=== PATIENT | male | born 1980 | race Caucasian/White ===

== ENCOUNTER 2018-04-29 00:21 | Emergency (ER) | payer OTHER, SELFPAY ==
[2018-04-29 00:24] VITALS: BP 171/93; PULSE 70; RESP 18; TEMP 36; O2SAT 99
--- NOTE | 2018-04-29 01:10 | W.ED.GENAD ---
Discharge Plan Disposition Patient Disposition: HOME Condition: Stable Discharge Details Chief Complaint: Laceration Clinical Impression: Puncture wound of left foot, Cellulitis Primary Care Provider: Kev Mon ED Provider: Ellen Hirsch Home Meds and New Rx's Prescriptions: New cephalexin [Keflex] 500 mg capsule 500 mg PO QID 7 Days Qty: 28 RF: 0 Continue ibuprofen 600 MG tablet 600 mg PO TID PRN PRNQty: 30 RF: 0 buprenorphine-naloxone [Zubsolv] 1 EACH tablet, sublingual 1 tab PO DAILY RF: 0 dicyclomine 20 MG tablet 20 mg PO Q6H PRN (Reason: Abdominal Pain) Qty: 10 RF: 0 Discharge Instructions Instructions: Puncture Wound (ED), Cellulitis (ED) Additional Instructions: Take the antibiotics until finished. Keep wound clean, dry, and covered. Apply topical antibiotic ointment to area once-twice daily. Alternate Tylenol and Motrin as needed and directed for pain. You will receive a call from care management regarding a follow-up appoint with your primary care doctor for reevaluation of your wound and for referral to orthopedics if worse for possible removal. Return immediately to the emergency department with any worsening or new concerning symptoms and for x-ray of your left foot. Referrals: Josef Dong MD [ [facility] STAFF PHYSICIAN] - Discharge Data Discharge Date/Time-TO BE ENTERED AT DEPARTURE: 04/29/18 01:20 Discharge Physician: Ellen Hirsch Medical Decision Making 37-year-old male who presents with concern for possible embedded toothpick in left foot with left foot pain tonight. Tetanus up-to-date 2016. Very minimal erythema around puncture wound to left medial MTP joint. Area was anesthetized with 5 cc of lidocaine 1% without epi. A 4 x 4 millimeter cross incision was made around the area and area was explored and probed with hemostat but no obvious foreign body noted. Minimal bleeding. Area was extensively irrigated with NS. Patient tolerated procedure well. Discussed with patient recommendations for x-ray to rule out foreign body, but discussed that it may not be seen as it is wood material, and he is declining x-ray at this time. Pt expressed concern about cost of xray. Discussed with patient that if foreign body embedded deep, would not want to explore any further for risk of neurovascular injury and patient is agreeable with this plan. Also discussed the possibility that there is no foreign body embedded and patient states this may be possible. Patient would rather proceed with topical and oral antibiotics at this time and will follow up with primary care doctor. Will place patient on care management list to arrange for a follow-up appointment with primary care doctor for reevaluation in the next few days and for referral to orthopedics if needs further debridement or exploration if symptoms persist or worsen. Dose of motrin and Keflex given here and prescription for home. Instructed to return immediately to the emergency department any worsening or new concerning symptoms. HPI General Mode of arrival: ambulatory. Date/Time Provider Initiated Documentation: 04/29/18 01:08. Limitations to Documentation: no limitations. Information obtained by: patient. HPI Narrative: 37-year-old male presents with concern for embedded toothpick in left foot since this evening. Patient states he was wearing socks when he stepped on a toothpick with his right foot and then attempted to remove it from his sock and rubbed his right foot onto his left foot and the toothpick became embedded on his left medial foot near his first toe. Patient states he attempted to pull the tooth pick out but he states it broke and when he removed the sock he could not find the remainder of the toothpick and he thinks it still embedded. Patient states he did have initial pain but has been developing pain over the past few hours. Patient states he tried to take and remove it on his own but did not find anything. Believes his tetanus is up-to-date. Denies any fever. Related Data Home Medications Medication Instructions Recorded Confirmed ibuprofen 600 mg PO TID PRN PRN #30 tablet 08/07/15 04/29/18 buprenorphine-naloxone [Zubsolv] 1 tab PO DAILY 11/08/16 04/29/18 dicyclomine 20 mg PO Q6H PRN #10 tab 11/08/16 04/29/18 cephalexin [Keflex] 500 mg PO QID 7 Days #28 cap 04/29/18 Previous Rx's Medication Instructions Recorded ibuprofen 600 mg PO TID PRN PRN #30 tablet 08/07/15 dicyclomine 20 mg PO Q6H PRN #10 tab 11/08/16 cephalexin [Keflex] 500 mg PO QID 7 Days #28 cap 12/12/18 Allergies Allergy/AdvReac Type Severity Reaction Status Date / Time No Known Allergies Allergy Unverified 04/29/18 00:28 General Stated Complaint: Laceration ION: 4 Review of Systems Review of Systems All systems reviewed & are unremarkable except as noted in HPI and below PFSH Diverticulitis large intestine Diverticulosis of colon GERD (gastroesophageal reflux disease) Opiate dependence Colonoscopy - IV Sedation Medical History Diverticulitis large intestine Diverticulosis of colon GERD (gastroesophageal reflux disease) Opiate dependence Social History Smoking/Tobacco Use Status: Current every day Surgical History Colonoscopy - IV Sedation Social History Smoking/Tobacco Use Status: Current every day Exam Const General: cooperative, healthy appearing and no acute distress HENMT Head: normal to inspection Mouth: oral mucosae normal Eyes General: appearance normal, both eyes and all related structures Neck Neck: normal visual inspection Resp Effort & Inspection: normal respiratory effort and able to speak in complete sentences Cardio Rate: regular rate Skin General skin exam: no rashes or lesions noted Neuro General: alert, awake and oriented x3 Motor: muscle tone normal throughout Extrem Left lower extremity: foot (2 x 2 millimeter puncture wound with healing erosion on left medial foot at first MTP joint. No obvious embedded foreign body. No palpation of linear foreign body under skin. There is minimal surrounding erythema no edema, induration or obvious abscess.) Details: vascular exam Details: dorsalis pedis pulse present and posterior tibial pulse present Psych Appearance: grossly normal Affect: normal affect Course Vital Signs Temperature 96.8 F L 04/29/18 00:24 Pulse 70 04/29/18 00:24 Respiratory Rate 18 04/29/18 00:24 Blood Pressure 171/93 H 04/29/18 00:24 Pulse Oximetry 99 04/29/18 00:24 Temperature 96.8 F L 04/29/18 00:24 Temperature Source Skin 04/29/18 00:24 Pulse 70 04/29/18 00:24 Respiratory Rate 18 04/29/18 00:24 Respiratory Effort Non-Labored 04/29/18 00:26 Blood Pressure 171/93 H 04/29/18 00:24 Blood Pressure Position Sitting 04/29/18 00:24 Pulse Oximetry 99 04/29/18 00:24 Oxygen Delivery Method Room Air 04/29/18 00:24 Oxygen Flow Rate 0 04/29/18 00:24
[2018-04-29] MEDS: Ibuprofen 600 MG TAB PO (01:14)
[2018-04-29] MEDS: Cephalexin 500 MG CAP PO (01:14)
--- NOTE | 2018-04-29 01:19 | ED.GENADUL_ITS ---
Discharge Plan Disposition Patient Disposition: HOME Condition: Stable Discharge Details Chief Complaint: Laceration Clinical Impression: Puncture wound of left foot, Cellulitis Primary Care Provider: Kev Mon ED Provider: Ellen Hirsch Home Meds and New Rx's Prescriptions: New cephalexin [Keflex] 500 mg capsule 500 mg PO QID 7 Days Qty: 28 RF: 0 Continue ibuprofen 600 MG tablet 600 mg PO TID PRN PRNQty: 30 RF: 0 buprenorphine-naloxone [Zubsolv] 1 EACH tablet, sublingual 1 tab PO DAILY RF: 0 dicyclomine 20 MG tablet 20 mg PO Q6H PRN (Reason: Abdominal Pain) Qty: 10 RF: 0 Discharge Instructions Instructions: Puncture Wound (ED), Cellulitis (ED) Additional Instructions: Take the antibiotics until finished. Keep wound clean, dry, and covered. Apply topical antibiotic ointment to area once-twice daily. Alternate Tylenol and Motrin as needed and directed for pain. You will receive a call from care management regarding a follow-up appoint with your primary care doctor for reevaluation of your wound and for referral to orthopedics if worse for possible removal. Return immediately to the emergency department with any worsening or new concerning symptoms and for x-ray of your left foot. Referrals: Josef Dong MD [ [facility] STAFF PHYSICIAN] - Discharge Data Discharge Date/Time-TO BE ENTERED AT DEPARTURE: 04/29/18 01:20 Discharge Physician: Ellen Hirsch Medical Decision Making 37-year-old male who presents with concern for possible embedded toothpick in left foot with left foot pain tonight. Tetanus up-to-date 2016. Very minimal erythema around puncture wound to left medial MTP joint. Area was anesthetized with 5 cc of lidocaine 1% without epi. A 4 x 4 millimeter cross incision was made around the area and area was explored and probed with hemostat but no obvious foreign body noted. Minimal bleeding. Area was extensively irrigated with NS. Patient tolerated procedure well. Discussed with patient recommendations for x-ray to rule out foreign body, but discussed that it may not be seen as it is wood material, and he is declining x- ray at this time. Pt expressed concern about cost of xray. Discussed with patient that if foreign body embedded deep, would not want to explore any further for risk of neurovascular injury and patient is agreeable with this plan. Also discussed the possibility that there is no foreign body embedded and patient states this may be possible. Patient would rather proceed with topical and oral antibiotics at this time and will follow up with primary care doctor. Will place patient on care management list to arrange for a follow-up appointment with primary care doctor for reevaluation in the next few days and for referral to orthopedics if needs further debridement or exploration if symptoms persist or worsen. Dose of motrin and Keflex given here and prescription for home. Instructed to return immediately to the emergency department any worsening or new concerning symptoms. HPI General Mode of arrival: ambulatory . Date/Time Provider Initiated Documentation: 04/29/18 01:08 . Limitations to Documentation: no limitations . Information obtained by: patient . HPI Narrative: 37-year-old male presents with concern for embedded toothpick in left foot since this evening. Patient states he was wearing socks when he stepped on a toothpick with his right foot and then attempted to remove it from his sock and rubbed his right foot onto his left foot and the toothpick became embedded on his left medial foot near his first toe. Patient states he attempted to pull the tooth pick out but he states it broke and when he removed the sock he could not find the remainder of the toothpick and he thinks it still embedded. Patient states he did have initial pain but has been developing pain over the past few hours. Patient states he tried to take and remove it on his own but did not find anything. Believes his tetanus is up-to- date. Denies any fever. Related Data Home Medications Medication Instructions Recorded Confirmed ibuprofen 600 mg PO TID PRN PRN #30 tablet 08/07/15 04/29/18 buprenorphine-naloxone [Zubsolv] 1 tab PO DAILY 11/08/16 04/29/18 dicyclomine 20 mg PO Q6H PRN #10 tab 11/08/16 04/29/18 cephalexin [Keflex] 500 mg PO QID 7 Days #28 cap 04/29/18 Previous Rx's Medication Instructions Recorded ibuprofen 600 mg PO TID PRN PRN #30 tablet 08/07/15 dicyclomine 20 mg PO Q6H PRN #10 tab 11/08/16 cephalexin [Keflex] 500 mg PO QID 7 Days #28 cap 12/12/18 Allergies Allergy/AdvReac Type Severity Reaction Status Date / Time No Known Allergies Allergy Unverified 04/29/18 00:28 General Stated Complaint: Laceration ION: 4 Review of Systems Review of Systems All systems reviewed & are unremarkable except as noted in HPI and below PFSH Diverticulitis large intestine Diverticulosis of colon GERD (gastroesophageal reflux disease) Opiate dependence Colonoscopy - IV Sedation Medical History Diverticulitis large intestine Diverticulosis of colon GERD (gastroesophageal reflux disease) Opiate dependence Social History Smoking/Tobacco Use Status: Current every day Surgical History Colonoscopy - IV Sedation Social History Smoking/Tobacco Use Status: Current every day Exam Const General: cooperative, healthy appearing and no acute distress HENMT Head: normal to inspection Mouth: oral mucosae normal Eyes General: appearance normal, both eyes and all related structures Neck Neck: normal visual inspection Resp Effort & Inspection: normal respiratory effort and able to speak in complete sentences Cardio Rate: regular rate Skin General skin exam: no rashes or lesions noted Neuro General: alert, awake and oriented x3 Motor: muscle tone normal throughout Extrem Left lower extremity: foot (2 x 2 millimeter puncture wound with healing erosion on left medial foot at first MTP joint. No obvious embedded foreign body. No palpation of linear foreign body under skin. There is minimal surrounding erythema no edema, induration or obvious abscess.) Details: vascular exam Details: dorsalis pedis pulse present and posterior tibial pulse present Psych Appearance: grossly normal Affect: normal affect Course Vital Signs Temperature 96.8 F L 04/29/18 00:24 Pulse 70 04/29/18 00:24 Respiratory Rate 18 04/29/18 00:24 Blood Pressure 171/93 H 04/29/18 00:24 Pulse Oximetry 99 04/29/18 00:24 Temperature 96.8 F L 04/29/18 00:24 Temperature Source Skin 04/29/18 00:24 Pulse 70 04/29/18 00:24 Respiratory Rate 18 04/29/18 00:24 Respiratory Effort Non-Labored 04/29/18 00:26 Blood Pressure 171/93 H 04/29/18 00:24 Blood Pressure Position Sitting 04/29/18 00:24 Pulse Oximetry 99 04/29/18 00:24 Oxygen Delivery Method Room Air 04/29/18 00:24 Oxygen Flow Rate 0 04/29/18 00:24
== END 2018-04-29 01:20 | disposition home or self-care (01) ==
LOC: ER 01:23
PROVIDERS: Emergency Provider Physician Assistant; PCP Specialist/Technologist Athletic Trainer
DX: S91.142A Puncture wound with foreign body of left great toe without damage to nail, initial encounter (principal); W45.8XXA Other foreign body or object entering through skin, initial encounter; L03.032 Cellulitis of left toe
CPT/HCPCS: 10120

== ENCOUNTER 2018-08-12 18:18 | Outpatient (REF) | payer OTHER, SELFPAY ==
[2018-08-12 21:43] LABS: ALT 39 U/L (12-78); AST 18 U/L (15-37); Alkaline Phosphatase 86 U/L (46-116); BUN 24 mg/dL (7-18); Bilirubin, Total 0.3 mg/dL (0.2-1.0); CREATININE 1.04 mg/dL (0.70-1.30); Calcium 9.3 mg/dL (8.5-10.1); Chloride 104 mmol/L (98-107); Cholesterol 199 mg/dL (50-200); Glucose 94 mg/dL (70-100); HDL Cholesterol 67 mg/dL (40-60); LDL CHOLESTEROL 109 mg/dL (<100); Potassium 3.8 mmol/L (3.5-5.1); Sodium 141 mmol/L (136-145); TSH (W/Ref FT4) 2.97 uIU/mL (0.358-3.74); Total Protein 7.4 g/dL (6.4-8.2); Triglyceride 99 mg/dL (30-150)
== END 2018-08-12 18:38 ==
LOC: NCHCN 18:18
PROVIDERS: PCP Specialist/Technologist Athletic Trainer; Visit Provider Family Medicine
DX: E66.9 Obesity, unspecified (principal); F10.10 Alcohol abuse, uncomplicated; Z00.00 Encounter for general adult medical examination without abnormal findings; Z13.220 Encounter for screening for lipoid disorders
CPT/HCPCS: 80053; 80061; 83721; 84443

== ENCOUNTER 2019-10-13 14:42 | Outpatient (REF) | payer OTHER, SELFPAY ==
[2019-10-15 07:34] LABS: COVID-19 RT-PCR Result NEGATIVE (Negative)
== END 2019-10-13 15:02 ==
LOC: NCHCN 14:42
PROVIDERS: PCP Specialist/Technologist Athletic Trainer; Visit Provider Nurse Practitioner Family
DX: Z11.59 Encounter for screening for other viral diseases (principal)
CPT/HCPCS: U0003

== ENCOUNTER 2020-02-14 13:49 | Outpatient (REF) | payer OTHER, SELFPAY ==
[2020-02-14 19:39] LABS: ALT 34 U/L (16-63); AST 16 U/L (15-37); Albumin 3.8 g/dL (3.4-5.0); Alkaline Phosphatase 87 U/L (46-116); Anion Gap 6.6 mmol/L (3-11); BUN 16 mg/dL (7-18); Bilirubin, Total 0.4 mg/dL (0.2-1.0); CO2 28.4 mmol/L (21.0-32.0); CREATININE 0.96 mg/dL (0.70-1.30); Chloride 103 mmol/L (98-107); Glucose 98 mg/dL (74-106); Potassium 4.3 mmol/L (3.5-5.1); Sodium 138 mmol/L (136-145); Total Protein 6.9 g/dL (6.4-8.2)
[2020-02-14 20:00] LABS: Hemoglobin A1C 5.3 % (<5.7)
== END 2020-02-14 14:09 ==
LOC: NCHCN 13:49
PROVIDERS: PCP Specialist/Technologist Athletic Trainer; Visit Provider Family Medicine
DX: R73.03 Prediabetes (principal); F10.10 Alcohol abuse, uncomplicated
CPT/HCPCS: 80053; 83036

== ENCOUNTER 2020-04-04 16:26 | Outpatient (REF) | payer OTHER, SELFPAY ==
[2020-04-07 09:41] LABS: HIV-1/2 Ag & Ab Screen Negative (Negative)
[2020-04-10 15:32] LABS: HSV 1 DNA Result Positive (Negative)
[2020-04-10 15:33] LABS: HSV 2 DNA Result Negative (Negative)
[2020-04-19 16:21] LABS: Hepatitis B Surface Ag Negative (Negative)
[2020-04-19 17:09] LABS: Syphilis Total Ab w/Reflex Nonreactive (Nonreactive)
== END 2020-04-04 16:46 ==
LOC: NCHCN 16:26
PROVIDERS: PCP Specialist/Technologist Athletic Trainer; Visit Provider Family Medicine
DX: Z11.4 Encounter for screening for human immunodeficiency virus [HIV] (principal); L98.9 Disorder of the skin and subcutaneous tissue, unspecified; Z00.00 Encounter for general adult medical examination without abnormal findings
CPT/HCPCS: 87340; 87389; 87529; 86695; 86696; 86780

== ENCOUNTER 2020-05-09 00:30 | Emergency (ER) | payer OTHER, SELFPAY ==
[2020-05-09 00:39] VITALS: BP 139/100; PULSE 77; RESP 16; TEMP 36.5; O2SAT 98
--- NOTE | 2020-05-09 00:45 | DI.CT_ITS ---
EXAM: CT NECK W CLINICAL HISTORY: suspect r/ peritonsillar abscess, recent tooth ext. TECHNIQUE: Imaging Protocol: Axial computed tomography images with coronal and sagittal reformatted images were created and reviewed. CONTRAST MATERIAL: Intravenous: Omnipaque 350 Contrast volume:100 mL COMPARISON: No exams were available for comparison FINDINGS: Orbits and orbital soft tissues: Within normal limits. Visualized paranasal sinuses: Within normal limits. Nasopharynx: Within normal limits. Oropharynx: Within normal limits. Hypopharynx: There is a fluid collection seen in the right tonsillar region measuring 3.0 x 2.9 x 3. 1 cm. There is a mass effect on the adjacent airway. There is enlargement of the palatine tonsil on the right. Larynx: Within normal limits. Retropharyngeal space: There is minimal fluid seen in the retropharyngeal space. Parotids/submandibular: Within normal limits. Thyroid gland: Within normal limits. Lymphadenopathy: There are mildly enlarged lymph nodes in the right neck which are likely reactive. Trachea: Within normal limits. Lung apices: Within normal limits. Bones: There is a socket in the right mandible posteriorly likely reflecting the patient's recent too th extraction. Carotids/Jugular: Within normal limits. Soft tissues: Within normal limits. IMPRESSION: 1. There is an empty socket in the right mandible posteriorly likely reflecting the patient's recent tooth extraction. 2. 3.1 cm fluid collection in the right tonsillar region consistent with an abscess. There is mild m ass effect on the airway and small amount of fluid in the retropharyngeal space. RADIATION DOSE DELIVERED: 613.24mGy.cm Total DLP 613.24mGy.cm Total DLP DATA REPOSITORY: All CT scans at this facility are submitted to the National Radiology Data Registry (NRDR) Dose Index Registry (DIR) with the [employer] ([employer]). RADIATION OPTIMIZATION: All CT scans at this facility use at least one of these dose optimization te chniques: automated exposure control; mA and/or kV adjustment per patient size (includes targeted exa ms where dose is matched to clinical indication); or iterative reconstruction.
--- NOTE | 2020-05-09 00:58 | W.ED.GENAD ---
Discharge Plan Disposition Patient Disposition: HOME Condition: Good Discharge Details Clinical Impression: Peritonsillar abscess Primary Care Provider: Kev Mon ED Provider: Kee Georges Home Meds and New Rx's Prescriptions: New amoxicillin-pot clavulanate [Augmentin] 875-125 mg tablet 1 tab PO Q12H 10 Days Qty: 20 RF: 0 Continued ibuprofen 600 MG tablet 600 mg PO TID PRN PRNQty: 30 RF: 0 dicyclomine 20 MG tablet 20 mg PO Q6H PRN (Reason: Abdominal Pain) Qty: 10 RF: 0 Discontinued penicillin V potassium 500 mg tablet 1,000 mg PO Q6H RF: 0 Discharge Instructions Instructions: Peritonsillar Abscess (ED) Additional Instructions: You had a peritonsillar abscess, likely a byproduct of the previous infection with your tooth that was removed a few days ago. Please stop taking the penicillin and start taking the Augmentin now. We gave you 2 pills to go home with, the first can be taken in the morning, the next 12 hours later if your prescription has not yet filled. Please then take the antibiotic that was prescribed to you for the entire 10-day period. Please take 800 mg of ibuprofen every 6 hours, and 500 mg of Tylenol every 6 hours. You can take the [place] pain pill as needed for breakthrough pain. Please stick with a soft and liquid diet for the next few days. We have placed a referral with the ENT doctors, please follow-up closely with them in the neck 2 to 3 days. If you not hear back from them in the next 24 to 48 hours please contact them. If you notice any worsening of your symptoms, or any new symptoms such as difficulty swallowing, drinking, controlling her secretions, worsening pain in your throat, vomiting, diarrhea, fever, chills, shortness of breath, chest pain, numbness, weakness, or fainting , please return immediately to the emergency department for reevaluation. Please follow up with your primary care provider as soon as possible for reassessment and reevaluation. As always, it was a pleasure participating in your medical care today. Referrals: Nishant Saunders DO [OSTEOPATHIC DOCTOR] - Tripp Negron MD [ [facility] STAFF PHYSICIAN] - Medical Decision Making 39-year-old male who presents today for evaluation of right-sided throat/tonsil pain. The patient is right lower wisdom tooth removed last week, he subsequently developed a dry socket, was seen by dentist on Friday and started on penicillin VK 1 g every 6 hours, since then he has had continued pain and swelling, describes the pain as achy in the right posterior aspect of his throat, as well as in the right tooth. He is able to maintain his secretions, but he does have slight difficulty getting any food down, because of this he is only been taking soup. He has been taking ibuprofen every 6 hours but this has not relieved the symptoms. He denies any other complaints at this time. He denies any fevers but does admit to occasional chills, he denies any chest pains or shortness of breath. Physical exam demonstrates swelling in the right posterior oropharynx in the peritonsillar space, it does press up against the uvula but it does not deviate the uvula to the left. No signs of airway compromise at all. He is tolerating his secretions well. Concern is for peritonsillar abscess. We will get a CT scan to evaluate for need for drainage, Decadron, Tylenol and Toradol, and Unasyn. 4:[address] scan does show evidence of large 3 cm peritonsillar abscess, laboratory work-up unremarkable. Patient benefits of in department procedure discussed. Patient agreed with bedside I&D of abscess. Respiratory therapy was called, she was at bedside for entire procedure. Timeout was performed, after initial nebulized lidocaine followed by local lidocaine with epi a small incision was placed using an 11 blade the superior aspect of the abscess, notable amount of chunky purulent material was exuded. The area was milked, notable decrease in size after this, however there was still fluctuance present in the lower aspect. A second small incision was made 1.5 cm inferior with an 11 blade, then an 18-gauge needle was used to aspirate 7 mL of foul-smelling purulent fluid. Patient tolerated this remarkably well. Post procedurally all bleeding stopped very promptly, patient had near complete resolution of the previous swelling that was there, there is currently now no deviation of the uvula, touching of the uvula of the peritonsillar space, or signs of significant swelling at all when compared bilaterally. Patient has notable subjective improvement of his symptoms, he can open his mouth well, he states he no longer feels like there is any difficulty swallowing whatsoever, and feels near complete resolution of his symptoms. Patient was observed for an additional 30 minutes to an hour for any change in symptoms. Patient continued to do well, showed no signs of airway compromise whatsoever in any way. Physical exam on repeat assessment also shows no evidence of significant swelling in the posterior oropharynx. At this time with near complete resolution of his symptoms patient feels well and feels comfortable going home. Patient will be discharged with Augmentin, recommend close follow-up with the ENT in the next 24 to 48 hours if indicated by them. I had a long discussion with the patient regarding red flags which to immediately return and he understands. I have extensively reviewed the treatment plan and discharge instructions with the patient. I have addressed all patient concerns at this time. The patient was made aware of what symptoms to monitor for that would warrant a return to the emergency department. Discussed the plan with the patient, they demonstrate verbal understanding and agreement with our assessment and plan at this time. FINDINGS: Right mandibular 3rd mandibular extraction socket noted Ovoid hypodensity in the right tonsillar space measuring up to 3x 2.1x 1.8 cm. There is mild mass effect on the or pharyngeal airway. Enlargement of the right palatine tonsil noted. Minimal phlegmon/fluid in the retropharyngeal space. The epiglottis is normal. The trachea is patent. The lung apices are grossly clear. Prominent right lateral retropharyngeal and jugular chain lymph nodes, presumed reactive. The nasopharynx is unremarkable. The visualized intracranial and intraorbital contents are unremarkable. The salivary glands and thyroid gland are unremarkable IMPRESSION: Right tonsillar abscess as described measuring up to 3 cm. Minimal fluid/phlegmon in the retropharyngeal space. Developing retropharyngeal collection not excluded. Consider ENT consultation Thank you for allowing us to participate in the care of your patient. Dictated and Authenticated by: Demarcus Greene MD 05/09/2020 1:31 AM Eastern Time ([place] & [place]) HPI General Date/Time Provider Initiated Documentation: 05/09/20 00:44. HPI Narrative: 39-year-old male who presents today for evaluation of right-sided throat/tonsil pain. The patient is right lower wisdom tooth removed last week, he subsequently developed a dry socket, was seen by dentist on Friday and started on penicillin VK 1 g every 6 hours, since then he has had continued pain and swelling, describes the pain as achy in the right posterior aspect of his throat, as well as in the right tooth. He is able to maintain his secretions, but he does have slight difficulty getting any food down, because of this he is only been taking soup. He has been taking ibuprofen every 6 hours but this has not relieved the symptoms. He denies any other complaints at this time. He denies any fevers but does admit to occasional chills, he denies any chest pains or shortness of breath. Related Data Home Medications Medication Instructions Recorded Confirmed ibuprofen 600 mg PO TID PRN PRN #30 tablet 08/07/15 05/09/20 dicyclomine 20 mg PO Q6H PRN #10 tab 11/08/16 05/09/20 amoxicillin-pot clavulanate 1 tab PO Q12H 10 Days #20 tab 05/09/20 [Augmentin] Previous Rx's Medication Instructions Recorded ibuprofen 600 mg PO TID PRN PRN #30 tablet 08/07/15 dicyclomine 20 mg PO Q6H PRN #10 tab 11/08/16 amoxicillin-pot clavulanate 1 tab PO Q12H 10 Days #20 tab 05/09/20 [Augmentin] Allergies Allergy/AdvReac Type Severity Reaction Status Date / Time No Known Allergies Allergy Unverified 04/29/18 00:28 General Stated Complaint: DentalOral ION: 4 Review of Systems All systems reviewed & are unremarkable except as noted in HPI and below PFSH Medical History (Updated 05/09/20 @ 03:37 by Kee Georges DO) Diverticulitis large intestine w/ microperforation 2013 Diverticulosis of colon 2013 GERD (gastroesophageal reflux disease) Opiate dependence on suboxone Surgical History Colonoscopy - IV Sedation 2013-Sue Garcia Social History Smoking/Tobacco Use Status: Current every day Smoking risk assessment performed?: Yes Drug use: Current Sobriety Do you feel safe in your relationship?: Yes Exam Narrative Exam Narrative: 1.Const: Well-nourished, Well-developed, appearing stated age 2.Eyes: PERRL, no conjunctival injection, and symmetrical lids. 3.ENT: Atraumatic external nose and ears. Posterior oropharynx demonstrates swelling in the right posterior peritonsillar space, it does push up against the uvula but at this time there is not any significant uvular deviation to the left. Mild tenderness on palpation, but I cannot palpate significant fluctuance on exam. No signs of acute airway compromise well, patient tolerating his secretions notably well. 4.CVS: +S1/S2, No murmurs or gallops. Peripheral pulses 2+ and equal in all extremities. Brisk capillary refill in all extremities. 5.RESP: Unlabored respiratory effort. Clear to auscultation bilaterally. No wheezes rales or rhonchi 6.GI: Soft, Nontender/Nondistended, No hepatosplenomegaly. No guarding or rebound. 7.MSK: Normocephalic/Atraumatic, Extremities w/o deformity or ttp No cyanosis or clubbing, Normal movement of all extremities 8.Skin: Warm, Dry. No rashes or lesions. 9.Neuro: security screener II-XII grossly intact. Sensation grossly intact, no focal neurologic deficits. 10.Psych: (AAO) x3. Appropriate mood and affect Course Vital Signs Vital signs: Vital Signs Temperature 36.5 C 05/09/20 00:39 Pulse 77 12 00:39 Respiratory Rate 16 05/09/20 00:39 Blood Pressure 139/100 H 05/09/20 00:39 Pulse Oximetry 98 05/09/20 00:39 Temperature 36.5 C 05/09/20 00:39 Temperature Source Skin 05/09/20 00:39 Pulse 77 05/09/20 00:39 Respiratory Rate 16 05/09/20 00:39 Respiratory Effort 05/09/20 00:41 Blood Pressure 139/100 H 05/09/20 00:39 Blood Pressure Position Sitting 05/09/20 00:39 Pulse Oximetry 98 12 00:39 Oxygen Delivery Method Room Air 05/09/20 00:39 Oxygen Flow Rate 0 05/09/20 00:39 Pain Level 7 05/09/20 00:41 Procedures Abscess I/D Site: Other (Peritonsillar space) Side (if applicable): Right Local Anesthetic: Lidocaine 1%, With Epi and Other Anesthetic (Nebulized lidocaine) Amount of anesthesia used (mL): 3 Technique: Needle Aspiration and Incised with #11 Blade Amount of fluid expressed (mL): 7 Irrigation: No Packing used?: None Complications: Other
[2020-05-09 01:02] LABS: Abs Immature Grans 0.04 10^3/uL (0.0-0.06); Absolute Basophil Count 0.02 10^3/uL (0.0-0.2); Absolute Eosinophil Count 0.28 10^3/uL (0.0-0.7); Absolute Lymphocyte Count 1.92 10^3/uL (1.2-3.4); Absolute Monocyte Count 0.77 10^3/uL (0.1-0.8); Absolute Neutrophil Count 7.08 10^3/uL (1.2-6.7); Basophils % 0.2; Eosinophils % 2.8; HCT 41.6 % (40.0-50.0); HGB 13.7 g/dL (13.5-17.5); Immature Grans % 0.4; MCH 28.6 pg (27.0-33.0); MCHC 32.9 % (32.0-36.0); MCV 86.8 fL (80-95); MPV 8.7 fL (8.0-11.0); Monocytes % 7.6; Nucleated RBC 0 %; Platelet Count 277 10^3/uL (130-400); RBC 4.79 10^6/uL (4.36-5.78); RDW 11.8 % (11.8-14.1); RDW-SD 37.8 fL; WBC 10.11 10^3/uL (4.4-10.8)
[2020-05-09] MEDS: Dexamethasone 10 MG/ML VIAL IVP (01:04)
[2020-05-09] MEDS: Ketorolac 30 MG/ML VIAL IVP (01:04)
[2020-05-09 01:12] LABS: Anion Gap 12.9 mmol/L (3-11); BUN 11 mg/dL (7-18); CO2 25.1 mmol/L (21.0-32.0); CREATININE 0.93 mg/dL (0.70-1.30); Chloride 105 mmol/L (98-107); Glucose 105 mg/dL (74-106); Potassium 3.4 mmol/L (3.5-5.1); Sodium 143 mmol/L (136-145)
[2020-05-09] MEDS: Omnipaque 350 MG/ML 100 ML BTL IJ (01:19)
[2020-05-09] MEDS: Normal Saline - Diluent 50 ML VIAL IV (01:19)
[2020-05-09] MEDS: Normal Saline Flush 10 ML SYR IVP (01:20)
[2020-05-09] MEDS: ACETAMINOPHEN 1,000 MG/100 ML BTL 400 MG IVPB (01:27)
--- NOTE | 2020-05-09 01:31 | DI.VRAD_ITS ---
Addendum created by Demarcus Greene MD on 05/09/2020 3:29:37 AM EST: The findings were verbally communicated via telephone conference with ALBERTO CHEW at 3:29 AM EST on 05/09/2020. The findings were acknowledged and understood. Initial report created on 05/09/2020 1:31:46 AM EST: PROCEDURE INFORMATION: Exam: CT Neck With Contrast Exam date and time: 05/09/2020 12:49 AM Age: 39 years old Clinical indication: Painful swallowing; Prior surgery; Surgery date: 3-7 days post-operative; Surgery type: Tooth extraction; Patient HX: Suspect r/ peritonsillar abscess, recent tooth ext TECHNIQUE: Imaging protocol: Computed tomography images of the neck with intravenous contrast. Radiation optimization: All CT scans at this facility use at least one of these dose optimization techniques: automated exposure control; mA and/or kV adjustment per patient size (includes targeted exams where dose is matched to clinical indication); or iterative reconstruction. Contrast material: OMNIPAQUE 350; Contrast volume: 100 ml; Contrast route: INTRA-ARTICULAR (ARTHROGRAM); COMPARISON: No relevant prior studies available. FINDINGS: Right mandibular 3rd mandibular extraction socket noted Ovoid hypodensity in the right tonsillar space measuring up to 3x 2.1x 1.8 cm. There is mild mass effect on the or pharyngeal airway. Enlargement of the right palatine tonsil noted. Minimal phlegmon/fluid in the retropharyngeal space. The epiglottis is normal. The trachea is patent. The lung apices are grossly clear. Prominent right lateral retropharyngeal and jugular chain lymph nodes, presumed reactive. The nasopharynx is unremarkable. The visualized intracranial and intraorbital contents are unremarkable. The salivary glands and thyroid gland are unremarkable IMPRESSION: Right tonsillar abscess as described measuring up to 3 cm. Minimal fluid/phlegmon in the retropharyngeal space. Developing retropharyngeal collection not excluded. Consider ENT consultation Dictated and Authenticated by: Demarcus Greene MD. Ordering:NAI Sweet MD
[2020-05-09] MEDS: AMPICILLIN/SULBACTAM 3 GM in Normal Saline 100 ML IVPB (01:45)
[2020-05-09] MEDS: Amox. 875/Clav. 125, 2 TABS/BTL 1 TAB PO (03:54)
[2020-05-09] MEDS: HYDROcodone 5/Acetaminophen 325 TAB PO (03:57)
[2020-05-09 03:59] VITALS: BP 141/79; PULSE 59; RESP 16; O2SAT 98
--- NOTE | 2020-05-09 05:10 | NUR.NOTE ---
ENT referral faxed to [facility] office 05/09/2020 @[id number] patient to be seen 24-48 hours after ER visit for follow on peritonsilar abscess - libl Nursing Note:
== END 2020-05-09 04:01 | disposition home or self-care (01) ==
PROVIDERS: Emergency Provider Student in an Organized Health Care Education/Training Program; PCP Specialist/Technologist Athletic Trainer
DX: J36 Peritonsillar abscess (principal); F17.210 Nicotine dependence, cigarettes, uncomplicated
CPT/HCPCS: 42700; 70491; 80048; 96365; 96367; 96375; 99285; 85025; J0131; J0295; J1100; J1885; J3490

== ENCOUNTER 2020-07-14 12:22 | Outpatient (REF) | payer OTHER, SELFPAY ==
[2020-07-16 16:34] LABS: COVID-19 RT-PCR UVMMC Result Negative (Negative)
== END 2020-07-14 12:23 | disposition home or self-care (01) ==
LOC: NCHCN 12:22
PROVIDERS: PCP Specialist/Technologist Athletic Trainer; Visit Provider Physician Assistant
DX: Z20.822 Contact with and (suspected) exposure to COVID-19 (principal); J06.9 Acute upper respiratory infection, unspecified
CPT/HCPCS: U0003

== ENCOUNTER 2021-05-10 19:09 | Outpatient (REF) | payer OTHER, SELFPAY ==
[2021-05-12 12:39] LABS: COVID-19 RT-PCR UVMMC Result Negative (Negative)
== END 2021-05-10 19:10 | disposition home or self-care (01) ==
LOC: LBN 19:09
PROVIDERS: PCP Specialist/Technologist Athletic Trainer; Visit Provider Physician Assistant Medical
DX: Z20.822 Contact with and (suspected) exposure to COVID-19 (principal)
CPT/HCPCS: U0003

== ENCOUNTER 2021-05-22 09:51 | Outpatient (CLI) | payer OTHER, SELFPAY ==
[2021-05-22 10:15] LABS: Abs Immature Grans 0.05 10^3/uL (0.0-0.06); Absolute Basophil Count 0.02 10^3/uL (0.0-0.2); Absolute Eosinophil Count 0.22 10^3/uL (0.0-0.7); Absolute Lymphocyte Count 1.84 10^3/uL (1.2-3.4); Absolute Monocyte Count 0.52 10^3/uL (0.1-0.8); Absolute Neutrophil Count 3.26 10^3/uL (1.2-6.7); Basophils % 0.3; Eosinophils % 3.7; HCT 45.8 % (40.0-50.0); HGB 14.8 g/dL (13.5-17.5); Immature Grans % 0.8; Lymphocytes % 31.1; MCH 28.2 pg (27.0-33.0); MCHC 32.3 % (32.0-36.0); MCV 87.2 fL (80-95); MPV 8.3 fL (8.0-11.0); Monocytes % 8.8; Neutrophils % 55.3; Nucleated RBC 0 %; Platelet Count 262 10^3/uL (130-400); RBC 5.25 10^6/uL (4.36-5.78); RDW 11.9 % (11.8-14.1); RDW-SD 38.3 fL; WBC 5.91 10^3/uL (4.4-10.8)
[2021-05-22 10:42] LABS: C-Reactive Protein 0.22 mg/dL (0.0-0.3)
[2021-05-22 10:43] LABS: Troponin I < 50 ng/L (<or=60)
== END 2021-05-22 09:52 | disposition home or self-care (01) ==
LOC: LBO 09:52
PROVIDERS: PCP Specialist/Technologist Athletic Trainer; Visit Provider Family Medicine
DX: R07.89 Other chest pain (principal)
CPT/HCPCS: 36415; 84484; 85025; 86140

== ENCOUNTER 2022-04-15 18:30 | Outpatient (REF) | payer OTHER, SELFPAY ==
[2022-04-15 19:26] LABS: Abs Immature Grans 0.05 10^3/uL (0.0-0.06); Absolute Basophil Count 0.03 10^3/uL (0.0-0.2); Absolute Eosinophil Count 0.32 10^3/uL (0.0-0.7); Absolute Lymphocyte Count 2.06 10^3/uL (1.2-3.4); Absolute Monocyte Count 0.67 10^3/uL (0.1-0.8); Absolute Neutrophil Count 6.48 10^3/uL (1.2-6.7); Basophils % 0.3; Eosinophils % 3.3; HCT 45.2 % (40.0-50.0); HGB 14.7 g/dL (13.5-17.5); Immature Grans % 0.5; Lymphocytes % 21.4; MCH 27.9 pg (27.0-33.0); MCHC 32.5 % (32.0-36.0); MCV 86 fL (80-95); MPV 9.2 fL (8.0-11.0); Neutrophils % 67.5; Platelet Count 284 10^3/uL (130-400); RBC 5.26 10^6/uL (4.36-5.78); RDW 11.9 % (11.8-14.1); RDW-SD 37.7 fL; WBC 9.61 10^3/uL (4.4-10.8)
[2022-04-15 19:51] LABS: ALT 49 U/L (16-63); AST 18 U/L (15-37); Albumin 3.9 g/dL (3.4-5.0); Alkaline Phosphatase 109 U/L (46-116); Anion Gap 9.8 mmol/L (3-11); BUN 19 mg/dL (7-18); Bilirubin, Total 0.5 mg/dL (0.2-1.0); C-Reactive Protein 12.37 mg/dL (0.0-0.3); CO2 26.2 mmol/L (21.0-32.0); CREATININE 0.9 mg/dL (0.70-1.30); Calcium 9.4 mg/dL (8.5-10.1); Chloride 103 mmol/L (98-107); Estimated GFR 111.42 (mL/min/1.73m2); Glucose 115 mg/dL (74-106); Sodium 139 mmol/L (136-145); Total Protein 7.7 g/dL (6.4-8.2)
== END 2022-04-15 18:31 | disposition home or self-care (01) ==
LOC: NCHCN 18:30
PROVIDERS: PCP Specialist/Technologist Athletic Trainer; Visit Provider Family Medicine
DX: R10.9 Unspecified abdominal pain (principal)
CPT/HCPCS: 80053; 85025; 86140

== ENCOUNTER → 2023-06-12 10:43 | Outpatient (CLI) | payer OTHER, SELFPAY ==
--- NOTE | 2023-06-12 | DI.RAD_ITS ---
Exam(s) XR FOOT LT COMPLETE EXAM: XR FOOT LT COMPLETE CLINICAL HISTORY: PAIN LEFT FOOT M79.672. TECHNIQUE: 2D digital imaging was performed of the left foot. Three images were obtained. AP, obli que and lateral views were obtained. COMPARISON: No exams were available for comparison FINDINGS: BONES: No acute fracture is present. No bony destructive lesion is seen. JOINTS: No dislocation present. The joint spaces are well maintained. SOFT TISSUE: Normal. IMPRESSION: Unremarkable radiographs of the left foot. DATA REPOSITORY: RADIATION DOSE DELIVERED:
== END ==
PROVIDERS: PCP Specialist/Technologist Athletic Trainer; Visit Provider Physician Assistant Medical
DX: M79.672 Pain in left foot (principal)
CPT/HCPCS: 73630

== ENCOUNTER 2023-06-14 03:47 | Emergency (ER) | payer OTHER, SELFPAY ==
[2023-06-14 03:51] VITALS: BP 140/86; PULSE 90; RESP 16; TEMP 36.6; O2SAT 99
--- NOTE | 2023-06-14 04:03 | ED.GENADUL_ITS ---
HPI General Mode of arrival: ambulatory . Date/Time Provider Initiated Documentation: 06/14/23 04:03 . Limitations to Documentation: no limitations . Information obtained by: patient . HPI Narrative: Time seen was 4 AM in bed 8. The patient is a healthy 42-year-old male who presents with a left foot pain which began about a week ago. Several days preceding the onset of the pain he was logging in the [place] and felt something poke into his foot through his sock and his boot but examined the boot and did not notice any evidence of a foreign body or damage to the sole of the boot. Several days later he developed pain in the sole of his left foot. Just proximal to his great toe and was seen in urgent care. He did not volunteer the information of a possible foreign body at that time. An x-ray was obtained which I have reviewed and which was read as unremarkable by the radiologist. The patient was diagnosed with a tentative diagnosis of gout and was placed on prednisone which she is taken for 2 days. He presents today with increasing pain which is constant and 6 out of 10 at rest 8 out of 10 with ambulation. The pain does not radiate. It is associated with a swollen area on the sole of the left foot with a whitish discoloration beneath the skin. He has been taking ibuprofen 800 mg and Tylenol. His last dose was at midnight. He denies any numbness tingling or drainage. He denies any fever or chills or red streaking. He does have a prior history of the toothpick embedded in the great toe of his left toe which was treated with antibiotics. He tells me subsequently several days after being seen he was able to express the toothpick and pus and his symptoms resolved. He has no history of diabetes or immune compromise. Related Data Home Medications Medication Instructions Recorded Confirmed ibuprofen 600 mg tablet 600 mg PO TID PRN PRN ##30 08/07/15 06/14/23 escitalopram oxalate 10 mg tablet 10 mg PO DAILY 06/14/23 06/14/23 prednisone 20 mg tablet 20 mg PO DAILY 06/14/23 06/14/23 sulfamethoxazole 800 1 tab PO Q12H #20 tabs 06/14/23 mg-trimethoprim 160 mg tablet (Bactrim DS) Previous Rx's Medication Instructions Recorded ibuprofen 600 mg tablet 600 mg PO TID PRN PRN ##30 08/07/15 sulfamethoxazole 800 1 tab PO Q12H #20 tabs 06/14/23 mg-trimethoprim 160 mg tablet (Bactrim DS) Allergies Allergy/AdvReac Type Severity Reaction Status Date / Time No Known Allergies Allergy Unverified 06/14/23 03:58 General Stated Complaint: RashLesion ION: 4 Review of Systems Narrative: see hpi Allergic/Immunologic Comments: He cannot recall the date of his last tetanus shot Exam Narrative Exam Narrative: The patient is well-developed well-nourished male who is alert and oriented in no acute distress. His vital signs are within normal limits. His GCS is 15. He is afebrile. HEENT: Normocephalic atraumatic pupils are equal round react light and accommodation. Extraocular muscles are intact. Nasopharynx is clear. His left foot reveals a tender fluctuant area which is approximately 2.5 cm in diameter on the sole of the left foot just proximal to the great toe which is tender and it appears that there is purulent material beneath it. There is no lymphangitis. He is able to flex and extend the great toe without discomfort. There is no sensory deficit. There is no lymphangitis or inguinal adenopathy. Cap refills less than 2 seconds. Neuro: He is moving all of his extremities normally neurologic exam is nonfocal. Cranial nerves II through XII are grossly intact. Course The patient tolerated the I&D well. I have advised him about the culture and the results being available in 48 hours. I have arranged for him to have podiatry follow-up. I have advised him if he is not seen within 48 hours to remove the dressing and wash the wound with dilute hydrogen peroxide and warm water. The patient was advised to at foods that contain probiotics such as kombucha or [place] yogurt while on antibiotics. Alternatively they were advised to ask their pharmacist for an [id number] probiotic to take while taking antibiotics. The patient and/or family voiced understanding and agreement with the discharge plan. All their questions and concerns were addressed prior to discharge. Due to voice recognition software, sound alike and misspelled words may be contained in the documentation. Vital Signs Vital signs: Vital Signs Temperature 36.6 C 06/14/23 03:51 Pulse 90 06/14/23 03:51 Respiratory Rate 16 06/14/23 03:51 Blood Pressure 140/86 06/14/23 03:51 Pulse Oximetry 99 06/14/23 03:51 Temperature 36.6 C 06/14/23 03:51 Temperature Source Skin 06/14/23 03:51 Pulse 90 06/14/23 03:51 Respiratory Rate 16 06/14/23 03:51 Respiratory Effort Normal, Non-Labored 06/14/23 03:56 Blood Pressure 140/86 06/14/23 03:51 Blood Pressure Position Supine 06/14/23 03:51 Pulse Oximetry 99 06/14/23 03:51 Oxygen Delivery Method Room Air 06/14/23 03:51 Oxygen Flow Rate 0 06/14/23 03:51 Pain Level 8 06/14/23 03:51 Procedures Abscess I/D Site: Foot Side (if applicable): Left Sedation/analgesia: None Local Anesthetic: Lidocaine 1% Amount of anesthesia used (mL): 4 Technique: Incised with #11 Blade Amount of fluid expressed (mL): 5 Irrigation: Yes Packing used?: None Complications: Other (None. Culture was obtained) Medical Decision Making This is a 42-year-old male without any history of immune compromise who presents with left foot pain and probable puncture wound prior to the onset of the pain. He had been seen at urgent care but did not give the history of the possible puncture wound and an x-ray was obtained which was read as negative by radiologist. He was placed on prednisone with a tentative diagnosis of gout. His exam is consistent with a soft tissue infection with what appears to be purulent material subcutaneously. There is no subcutaneous emphysema, lymphangitis and he has not had any fevers or chills. My plan is to review his plain films and then to I&D the abscess and take a culture. We will also update his tetanus and likely place him on trimethoprim/sulfamethoxazole. Differential Diagnosis Differential Diagnosis: Retained foreign body, abscess left foot pain, MRSA, Medical Records Medical records reviewed: Yes I reviewed the patient's medical records. Quality:SDOH Health Related Social Needs: No Data to Display PFSH All Active Problems Abscess of left foot (Acute) Incisional abscess (Acute) Cholecystitis with cholelithiasis (Acute) Diverticulitis of colon (Acute 04/03/14) LLQ abdominal pain (Acute 04/03/14) Medical History Diverticulitis large intestine w/ microperforation 2013 GERD (gastroesophageal reflux disease) Diverticulosis of colon 2013 Opiate dependence on suboxone Surgical History Colonoscopy - IV Sedation 2014-Sue Garcia Social History Smoking/Tobacco Use Status: Current every day Tobacco Type: cigarettes Years smoked: 25 Smoking risk assessment performed?: Yes Alcohol Intake: never Drug use: Current Sobriety Substance use type: former substance user Details: previously on bup, no longer takes. Do you feel safe in your relationship?: Yes Discharge Plan Disposition Patient Disposition: Home Discharge Details Clinical Impression: Incisional abscess, Abscess of left foot Primary Care Provider: Kev Mon ED Provider: Kimberli Stoddard Home Meds and New Rx's Prescriptions: New sulfamethoxazole-trimethoprim [Bactrim DS] 800-160 mg tablet 1 tab PO Q12H Qty: 20 0RF No Action ibuprofen 600 MG tablet 600 mg PO TID PRN PRNQty: 30 0RF Rx Instructions: take with food escitalopram oxalate 10 mg tablet 10 mg PO DAILY Patient Comments: TAKE ONE TABLET BY MOUTH EVERY DAY prednisone 20 mg tablet 20 mg PO DAILY Patient Comments: TAKE THREE TABLETS BY MOUTH EVERY MORNING WITH FOOD FOR 3 DAYS, THEN TAKE TWO TABLETS BY MOUTH EVERY MORNING WITH FOOD FOR 3 DAYS, THEN TAKE Discharge Instructions Instructions: Probiotic (By mouth), Abscess (ED), Abscess Incision and Drainage (DC) Additional Instructions: 1. Alternate 1000mg of acetaminophen (Tylenol) every 3 hours with 400-600mg of ibuprofen (Motrin/Advil) as needed for pain or fever. Do not take more than 4000mg in 24 hours. Do not take acetaminophen if you have a history of liver disease. Do not take ibuprofen if you have a history of gastrointestinal bleeding or a history of kidney disease. 2. Stop prednisone and start Bactrim DS (trimethoprim/sulfamethoxazole) 1 tablet every 12 hours for 10 days. While on antibiotics, we recommend you take probiotics. Probiotics help to replace the good bacteria that are killed when taking antibiotics and may decrease the gastrointestinal side effects, such as diarrhea, that sometimes occur while on antibiotics. Probiotics can be found in some foods such as kombucha and [place] yogurt. Alternatively, you may ask your pharmacist to recommend an txea-[id number]-[id number] probiotic to take along with your prescription for antibiotics. 3. A culture was taken and will be resulted in 48 hours. 4. After 48 hours wash the wound with dilute hydrogen peroxide and warm tap water twice a day. 5. You should receive a phone call on Friday the from the supervisor fabrication department with a follow-up appointment and recheck. Return to the emergency department if you develop any new or worrisome symptoms such as increasing pain, fever, chills, red streaking, swollen lymph nodes or any concerns. Discharge Data Discharge Physician: Kimberli Stoddard
--- NOTE | 2023-06-14 05:22 | NUR.NOTE ---
Pt placed on care management referral list for Podiatry for wound infection to be seen on FridayJun 16,. Per ER Dr. Stoddard.
[2023-06-14] MEDS: Sulfameth/Trimeth DS TAB 1 TAB PO (05:26)
[2023-06-14] MEDS: Ketorolac 15 MG/ML VIAL IM (05:30)
--- NOTE | 2023-06-16 07:19 | NUR.NOTE ---
Accessed Pt chart to obtain diagnosis for the [facility] paperwork.
== END 2023-06-14 05:38 | disposition home or self-care (01) ==
PROVIDERS: Emergency Provider Emergency Medicine Emergency Medical Services; PCP Specialist/Technologist Athletic Trainer
DX: M79.672 Pain in left foot (principal); L02.612 Cutaneous abscess of left foot
CPT/HCPCS: 10060; 87077; 90471; 90715; 96372; 99284; 87070; 87186; 87205; 99283; J1885

== ENCOUNTER 2023-06-19 13:11 | Outpatient (CLI) | payer OTHER, SELFPAY | END 2023-06-19 13:12 | disposition home or self-care (01) | LOC: ORDER INT 13:12 | PROVIDERS: PCP Family Medicine; Visit Provider Podiatrist | DX: L02.612 Cutaneous abscess of left foot (principal) ==

== ENCOUNTER 2023-08-19 15:53 | Outpatient (REF) | payer OTHER, SELFPAY | END 2023-08-19 15:54 | disposition home or self-care (01) | LOC: LBN 15:53 | PROVIDERS: PCP Family Medicine; Visit Provider Nurse Practitioner Family | DX: L02.412 Cutaneous abscess of left axilla (principal) | CPT/HCPCS: 87077; 87070; 87186; 87205 ==

== ENCOUNTER 2024-02-11 15:12 | Outpatient (CLI) | payer OTHER, SELFPAY ==
--- NOTE | 2024-02-11 15:01 | DI.RAD_ITS ---
Exam(s) XR SHOULDER LT COMPLETE 2+V EXAM: XR SHOULDER LT COMPLETE 2+V CLINICAL HISTORY: PAIN LEFT SHOULDER M25.512. TECHNIQUE: 2D digital imaging was performed of the left shoulder. Five images were obtained. AP, G rashey, Y-view and axillary views were obtained. COMPARISON: No exams were available for comparison FINDINGS: BONES: No acute fracture is present. No bony destructive lesion is seen. JOINTS: No dislocation present. There are mild degenerative changes seen at the acromioclavicular vandana nt. There is a well corticated osseous density seen at the superior aspect of the distal clavicle wh ich appears chronic. The glenohumeral joint is well maintained. SOFT TISSUE: Normal. IMPRESSION: Degenerative changes seen at the left AC joint. DATA REPOSITORY: RADIATION DOSE DELIVERED:
== END 2024-02-11 15:32 ==
LOC: DI 15:13
PROVIDERS: PCP Family Medicine; Visit Provider Physician Assistant Medical
DX: M25.512 Pain in left shoulder (principal)
CPT/HCPCS: 73030

== ENCOUNTER 2024-05-25 17:49 | Outpatient (REF) | payer OTHER, SELFPAY ==
[2024-05-25 19:25] LABS: HCT 45.5 % (40.0-50.0); HGB 15.5 g/dL (13.5-17.5); MCH 29.8 pg (27.0-33.0); MCHC 34.1 % (32.0-36.0); MCV 87 fL (80-95); MPV 8.9 fL (8.0-11.0); Platelet Count 255 10^3/uL (130-400); RBC 5.21 10^6/uL (4.36-5.78); RDW 11.9 % (11.8-14.1); RDW-SD 38.3 fL; WBC 6.24 10^3/uL (4.4-10.8)
[2024-05-25 19:55] LABS: ALT 43 U/L (16-63); AST 19 U/L (15-37); Albumin 3.9 g/dL (3.4-5.0); Alkaline Phosphatase 92 U/L (46-116); Anion Gap 4.9 mmol/L (3-11); BUN 17 mg/dL (7-18); Bilirubin, Total 0.52 mg/dL (0.2-1.0); CO2 31.1 mmol/L (21.0-32.0); CREATININE 1.2 mg/dL (0.70-1.30); Calcium 9.2 mg/dL (8.5-10.1); Chloride 106 mmol/L (98-107); Estimated GFR 77.92 (mL/min/1.73m2); Glucose 110 mg/dL (74-106); Potassium 4.3 mmol/L (3.5-5.1); Sodium 142 mmol/L (136-145); TSH (W/Ref FT4) 1.31 uIU/mL (0.36-3.74)
== END 2024-05-25 17:50 | disposition home or self-care (01) ==
LOC: NCHCN 17:49
PROVIDERS: PCP Family Medicine; Visit Provider Nurse Practitioner Family
DX: R53.83 Other fatigue (principal)
CPT/HCPCS: 80053; 85027; 83735; 84443

== ENCOUNTER 2024-12-18 20:15 | Observation (INO) | payer BC, SELFPAY ==
[2024-12-18 20:18] VITALS: BP 169/92; PULSE 71; RESP 19; TEMP 36.8; O2SAT 99
--- NOTE | 2024-12-18 20:38 | ED.GENADUL_ITS ---
Discharge Plan Disposition Patient Disposition: Admit to [facility] Discharge Details Clinical Impression: Cellulitis, scrotum, Sclerosis of sacroiliac joint Primary Care Provider: MERLE EDDY ED Provider: Marianela Milan Home Meds and New Rx's Prescriptions: No Action escitalopram oxalate 20 mg tablet 20 mg PO DAILY clonidine HCl 0.1 mg tablet 0.1 mg PO QHS buspirone 10 mg tablet 10 mg PO TID buprenorphine-naloxone 8-2 mg film 2 film buccal DAILY Rx Instructions: place 1 film on inside of (each) cheek albuterol sulfate 90 mcg/actuation HFA aerosol inhaler 2 puff inhalation Q6H PRN (Reason: shortness of breath or wheezing) Qty: 8.5 0RF bupropion HCl 150 mg tablet extended release 24 hr PO Patient Comments: TAKE ONE TABLET BY MOUTH EVERY DAY IN THE MORNING FOR DEPRESSED MOOD ondansetron HCl 4 mg tablet 4 mg PO Q8H PRN Patient Comments: TAKE 1 TO 2 TABLETS BY MOUTH EVERY 8 HOURS NEEDED FOR NAUSEA AND VOMITING disulfiram 250 mg tablet 250 mg PO DAILY Patient Comments: TAKE ONE TABLET BY MOUTH EVERY DAY propranolol 10 mg tablet 10 mg PO BID PRN Patient Comments: TAKE 1-2 TABLETS BY MOUTH TWO TIMES A DAY NEEDED FOR ANXIETY ibuprofen 600 MG tablet 600 mg PO TID PRN PRNQty: 30 0RF Rx Instructions: take with food escitalopram oxalate 10 mg tablet 10 mg PO DAILY Patient Comments: TAKE ONE TABLET BY MOUTH EVERY DAY HPI General Date/Time Provider Initiated Documentation: 12/18/24 20:24 . HPI Narrative: Rick is a 44-year-old male with history of abscesses who presents to the emergency department today for evaluation of a painful scrotal abscess, first noticed 3-4 days ago. He attempted to care for this at home, applied Neosporin and taking hot baths, says it started draining slightly today; he attempted self-drainage and was able to release some white material but was painful. He reports he is feeling nausea, body aches, and chills. Denies fevers, vomiting, change in p.o. intake, abdominal pain, change in bowel or bladder function, penile discharge, change in testicles. Has taken Tylenol and ibuprofen for pain. Denies significant past medical history, is on Suboxone for former opioid use. Last antibiotics course was over 3 months ago for foot infection. Related Data Home Medications ?Medication ?Instructions ?Recorded ?Confirmed ibuprofen 600 mg tablet 600 mg PO TID PRN PRN #30 ta bs 08/07/15 08/21/24 escitalopram oxalate 10 mg tablet 10 mg PO DAILY 06/1408/21/24 albuterol sulfate 90 mcg/actuation 2 puff inhalation Q 6H PRN 06/23/24 08/21/24 aerosol inhaler shortness of breath or wheez ing #8.5 grams buprenorphine 8 mg-naloxone 2 mg 2 film buccal DAILY 0 06/23/24 08/21/24 sublingual film buspirone 10 mg tablet 10 mg PO TID 06/23/24 clonidine HCl 0.1 mg tablet 0.1 mg PO QHS 06/23/2410/10 escitalopram oxalate 20 mg tablet 20 mg PO DAILY 06/2308/21/24 bupropion HCl 150 mg 24 hr tablet, mg PO 08/21/2410/10 extended release disulfiram 250 mg tablet 250 mg PO DAILY 08/21/2410/10 ondansetron HCl 4 mg tablet 4 mg PO Q8H PRN 08/21/24 0 08/21/24 propranolol 10 mg tablet 10 mg PO BID PRN 08/21/24 Previous Rx's ?Medication ?Instructions ?Recorded ibuprofen 600 mg tablet 600 mg PO TID PRN PRN #30 ta bs 08/07/15 albuterol sulfate 90 mcg/actuation 2 puff inhalation Q 6H PRN 06/23/24 aerosol inhaler shortness of breath or wheez ing #8.5 grams Allergies Allergy/AdvReac Type Severity Reaction Status Date / Time No Known Allergies Allergy Unverified 08/21/24 09:38 General Stated Complaint: RashLesion ION: 3 Exam Narrative Exam Narrative: General Appearance: Normal. Patient is alert and oriented, no acute distress. Vital signs: Pretension noted, no tachycardia, tachypnea, or fever. GI: Abdomen is soft, nondistended, nontender to palpation Genitourinary: Painful area of induration/warmth to R testicle, approx 7cm x 3 cm with pustule. No active drainage. No crepitus or surrounding erythema/warmth. Exam performed with male staff extraction operator at bedside Skin: Warm and dry, no rash. Psychiatric: Normal. Other observations: Fianc? present. Course Vital Signs Vital signs: Vital Signs Temperature 36.8 C 12/18/24 20:18 Pulse 71 12/18/24 20:18 Respiratory Rate 19 12/18/24 20:18 Blood Pressure 169/92 H 12/18/24 20:18 Pulse Oximetry 99 12/18/24 20:18 Temperature 36.8 C 12/18/24 20:18 Temperature Source Oral 12/18/24 20:18 Pulse 71 12/18/24 20:18 Respiratory Rate 19 12/18/24 20:18 Blood Pressure 169/92 H 12/18/24 20:18 Pulse Oximetry 99 12/18/24 20:18 Oxygen Delivery Method Room Air 12/18/24 20:18 Oxygen Flow Rate 0 12/18/24 20:18 Pain Level 8 12/18/24 20:18 Medical Decision Making Initial Assessment: 44-year-old male with painful scrotal abscess, nausea, chills, body aches. Foot pain likely due to new insoles and prolonged standing. History and presentation consistent with scrotal abscess. Concern for potential deep space infection, no red flags concerning for necrotizing fasciitis/Trent's gangrene. I independently interpreted the following tests: CBC and CMP both reassuring No Scrotal abscess per radiologist ([facility]). ED Course: - CT pelvis performed to evaluate scrotal abscess - Blood counts obtained - Toradol given for pain management Despite reassuring CT findings, significant concern for probable scrotal abs cess. Discussed case with general surgeon Dr Lopez; recommends initiating antibiotics with gram-negative coverage (zosyn) with plan for surgical consult in the morning, possible I&D in OR. Patient to be admitted to hospitalist service overnight, presented patient to Dr. Noguera, who is agreeable with admission Clinical Impression: - Scrotal cellulitis with concern of abscess Disposition: - Admit to [facility] under hospitalist service with surgical consult Patient consented to the use of JF Imaging Data Radiologic Study: Radiologist's impression: PROCEDURE INFORMATION: Exam: CT Pelvis With Contrast Exam date and time: 12/18/2024 9:22 PM Age: 44 years old Clinical indication: Other: Scrotal abscess TECHNIQUE: Imaging protocol: Computed tomography of the pelvis with contrast. Contrast material: OMNIPAQUE 350; Contrast volume: 75 ml; Contrast route: INTRAVENOUS (IV); COMPARISON: No relevant prior studies available. FINDINGS: Intestine: No bowel dilatation. Colonic diverticula. Appendix: Normal in appearance. Intraperitoneal space: Unremarkable. No free air. No significant fluid collection. Lymph nodes: Unremarkable. No enlarged lymph nodes. Reproductive: Normal prostate. There maybe scrotal skin thickening. No discrete collection, air-fluid level or gas bubbles are demonstrated in the scrotum. Testicles appear normally descended and are normal in size. Urinary bladder: Normal. No mass. Bones/joints: Degenerative disc disease at L5-S1 level. There is asymmetric sclerosis inferolaterally in right sacral ala without expansile or destructive change. Minimal sclerosis is demonstrated bilaterally in each ilium at sacroiliac joints. No acute fracture. No dislocation. Soft tissues: Unremar kable. IMPRESSION: 1. No CT findings for scrotal abscess. There maybe scrotal skin thickening. Further evaluation with scrotal ultrasound suggested. . Asymmetric sclerosis in right sacrum and in both aly at sacroiliac joints could be due to early but asymmetric osteoarthritis or less likely gout, psoriatic arthritis or reactive arthritis. Follow-up recommended. 3. Colonic diverticula. PFSH All Active Problems (Updated 12/18/24 @ 23:43 by Marianela Salas) Sclerosis of sacroiliac joint (Acute) Cellulitis, scrotum (Acute) Depression (Chronic) Scrotal wall abscess (Acute) Cellulitis of left foot (Acute) Foreign body in left foot (Acute) Cholecystitis with cholelithiasis (Acute) Diverticulitis of colon (Acute 04/03/14) LLQ abdominal pain (Acute 04/03/14) Medical History (Updated 12/18/24 @ 23:43 by Marianela Salas) Diverticulitis large intestine w/ microperforation 2014 GERD (gastroesophageal reflux disease) Diverticulosis of colon 2014 Opiate dependence on suboxone Surgical History Colonoscopy - IV Sedation 2014-Sue Garcia Social History Smoking/Tobacco Use Status: Current every day Tobacco Type: cigarettes Years smoked: 25 Smoking risk assessment performed?: Yes Alcohol Intake: former Drug use: Current Sobriety Substance use type: former substance user Details: previously on bup, no longer takes. Do you feel safe in your relationship?: Yes
[2024-12-18 21:07] LABS: Abs Immature Grans 0.05 10^3/uL (0.0-0.06); HCT 37.9 % (40.0-50.0); HGB 12.5 g/dL (13.5-17.5); Immature Grans % 0.5 %; MCH 28.3 pg (27.0-33.0); MCHC 33.0 % (32.0-36.0); MCV 86 fL (80-95); MPV 8.5 fL (8.0-11.0); Platelet Count 216 10^3/uL (130-400); RBC 4.41 10^6/uL (4.36-5.78); RDW 11.9 % (11.8-14.1); RDW-SD 37.3 fL; WBC 10.26 10^3/uL (4.4-10.8)
[2024-12-18] MEDS: Omnipaque 350 MG/ML 100 ML BTL IJ (21:14)
[2024-12-18] MEDS: Normal Saline - Diluent 50 ML VIAL IJ (21:14)
[2024-12-18 21:22] LABS: ALT 36 U/L (16-63); AST 18 U/L (15-37); Albumin 3.3 g/dL (3.4-5.0); Alkaline Phosphatase 97 U/L (46-116); Anion Gap 4.8 mmol/L (3-11); BUN 14 mg/dL (7-18); Bilirubin, Total 0.2 mg/dL (0.2-1.0); CO2 30.2 mmol/L (21.0-32.0); Calcium 8.8 mg/dL (8.5-10.1); Chloride 102 mmol/L (98-107); Estimated GFR 113.32 (mL/min/1.73m2); Glucose 115 mg/dL (74-106); Potassium 3.8 mmol/L (3.5-5.1); Sodium 137 mmol/L (136-145); Total Protein 6.9 g/dL (6.4-8.2)
--- NOTE | 2024-12-18 21:32 | DI.CT_ITS ---
Exam(s) CT PELVIC W EXAM: CT PELVIC W CLINICAL HISTORY: scrotal abscess. TECHNIQUE: Imaging Protocol: Axial computed tomography images with coronal and sagittal reformatted images were created and reviewed CONTRAST MATERIAL: Intravenous: Omnipaque 100cc Oral: None COMPARISON: No exams were available for comparison FINDINGS: PELVIS: OSSEOUS:No pelvic or hip fractures evident. No significant osseous lesions. ANTERIOR ABDOMINAL WALL/GI:No evidence of bowel obstruction. No evidence of appendicitis.There is sigmoid diverticuli but no evidence of acute diverticulitis. LYMPH NODES: There is no intrapelvic nor inguinal adenopathy. REPRODUCTIVE: Prostate gland is not enlarged. Seminal vesicles unremarkable. URINARY BLADDER: There is diffuse uniform thickening of the urinary bladder wall. This may be exaggerated by under distension of the urinary bladder. There are no radiopaque calculi in the bladder lumen. No obvious focal bladder mass. The pelvic ureters are not dilated. PERINEUM/SCROTUM: The skin on the inferior aspect of the scrotum and extending posteriorly is thickened-indurated. Does not contain gas bubbles nor a truly discernible peripherally enhancing abscess. There do not appear to be large hydroceles and both testicles are intra scrotal. Shoddy lymph nodes are noted in both inguinal regions. IMPRESSION: 1. There is some scrotal skin thickening with mild peroneal extension. However, there is no evidence of obvious abscess and there is no gas in the soft tissues. 2. There are sigmoid diverticuli but no evidence of acute diverticulitis. No appendicitis. 3. There is diffuse relatively uniform thickening of the urinary bladder wall. This may be exaggerated by under distension but cannot exclude cystitis. There are no radiopaque calculi in the urinary bladder lumen. The pelvic ureters are not dilated. The preliminary virtual Radiology report was reviewed. RADIATION DOSE DELIVERED: 742.52mGy.cm Total DLP DATA REPOSITORY: All CT scans at this facility are submitted to the National Radiology Data Registry (NRDR) Dose Index Registry (DIR) with the [employer] (ACR). RADIATION OPTIMIZATION: All CT scans at this facility use at least one of these dose optimization techniques: automated exposure control; mA and/or kV adjustment per patient size (includes targeted exams where dose is matched to clinical indication); or iterative reconstruction.
[2024-12-18] MEDS: Ketorolac 15 MG/ML VIAL IVP (21:47)
--- NOTE | 2024-12-18 22:30 | DI.[facility]_ITS ---
PROCEDURE INFORMATION: Exam: CT Pelvis With Contrast Exam date and time: 12/18/2024 9:22 PM Age: 44 years old Clinical indication: Other: Scrotal abscess TECHNIQUE: Imaging protocol: Computed tomography of the pelvis with contrast. Contrast material: OMNIPAQUE 350; Contrast volume: 75 ml; Contrast route: INTRAVENOUS (IV); COMPARISON: No relevant prior studies available. FINDINGS: Intestine: No bowel dilatation. Colonic diverticula. Appendix: Normal in appearance. Intraperitoneal space: Unremarkable. No free air. No significant fluid collection. Lymph nodes: Unremarkable. No enlarged lymph nodes. Reproductive: Normal prostate. There maybe scrotal skin thickening. No discrete collection, air-fluid level or gas bubbles are demonstrated in the scrotum. Testicles appear normally descended and are normal in size. Urinary bladder: Normal. No mass. Bones/joints: Degenerative disc disease at L5-S1 level. There is asymmetric sclerosis inferolaterally in right sacral ala without expansile or destructive change. Minimal sclerosis is demonstrated bilaterally in each ilium at sacroiliac joints. No acute fracture. No dislocation. Soft tissues: Unremarkable. IMPRESSION: 1. No CT findings for scrotal abscess. There maybe scrotal skin thickening. Further evaluation with scrotal ultrasound suggested. 2. Asymmetric sclerosis in right sacrum and in both aly at sacroiliac joints could be due to early but asymmetric osteoarthritis or less likely gout, psoriatic arthritis or reactive arthritis. Follow-up recommended. 3. Colonic diverticula. Dictated and Authenticated by: Aubrey Rodriguez MD. Orderin Bolivar Bear MD
[2024-12-18] MEDS: PIPERACILLIN/TAZO 4.5 GM in Normal Saline 100 ML IVPB (23:11)
--- NOTE | 2024-12-18 23:23 | W.PM.HP.N ---
Date of service: 12/18/24 Time of Service: 23:23 Assessment and Plan Assessment and plan (1) Scrotal wall abscess: Start date: 12/18/24 Status: Acute Assessment and plan: This a 44-year-old gentleman with a 3 to 4-day history of localized swelling in his scrotum now worsening with increasing pain. There appears to be a localized abscess contained in the wall of the scrotum but not involving the testicles. He did respond to Toradol for pain management despite his chronic daily use of Suboxone, and this will be continued. Surgery was consulted and will see the patient for possible I&D in the morning. He would be n.p.o. after midnight. He will continue on Zosyn IV until seen by surgery. He is a full code. (2) Opiate dependence: Assessment and plan: Continue daily Suboxone once dosages confirmed in the morning. FRANCISCO was ordered but not obtained as of yet. Review of VPMS did confirm consistent prescribing of Suboxone as an outpatient. (3) Depression: Status: Chronic Assessment and plan: Continue outpatient medical therapy with confirmation in the morning. (4) Tobacco user: Status: Chronic Assessment and plan: Offer nicotine patch if needed. Patient does have intermittent use of albuterol HFA which will be continued. History of Present Illness History of Present Illness Chief Complaint: Painful scrotal abscess enlarging. Narrative: This is a 44-year-old male patient who has a history of spontaneous abscesses who noticed an abscess forming on his scrotum 3 to 4 days prior to presentation. He did attempt to drain the abscess at home and got some purulent discharge, but this was slight. He was applying topical Neosporin. He states that the pain was increasing and has had some chills and bodyaches with nausea. He denies any vomiting and he has been eating well. He has not noticed any fever at home and not have any dysuria or penile discharge. He is on daily Suboxone chronically. FRANCISCO was ordered in the ED but not yet performed. Review of VPMS does show consistently prescribed Suboxone. Patient denies illicit drug use presently. He is overweight. Surgery was called and will see the patient in the morning for possible I&D in the OR. Imaging was reassuring despite his description of increasing pain. He will be n.p.o. after midnight. CT scan of the pelvis did not show any abscess but only thickening of the skin in the scrotal area where he has a superficial abscess. This shows a did not have any concern for fasciitis at this time but did advise initiating the patient on Zosyn. The CT report did recommend ultrasound of the scrotum if available. He is a full code. Review of Systems Narrative: 13 point review of systems otherwise unrevealing or stable. PFSH All Active Problems (Updated 12/19/24 @ 06:37 by Bryant Noguera) Tobacco user (Chronic) Sclerosis of sacroiliac joint (Acute) Cellulitis, scrotum (Acute) Depression (Chronic) Scrotal wall abscess (Acute) Cellulitis of left foot (Acute) Foreign body in left foot (Acute) Cholecystitis with cholelithiasis (Acute) Diverticulitis of colon (Acute 04/03/14) LLQ abdominal pain (Acute 04/03/14) Medical History (Updated 12/19/24 @ 06:37 by Bryant Noguera) Diverticulitis large intestine w/ microperforation 2013 GERD (gastroesophageal reflux disease) Diverticulosis of colon 2013 Opiate dependence on suboxone Surgical History Colonoscopy - IV Sedation 2014-Sue Garcia Social History Smoking/Tobacco Use Status: Current every day Tobacco Type: cigarettes Years smoked: 25 Smoking risk assessment performed?: Yes Alcohol Intake: former Drug use: Current Sobriety Substance use type: former substance user Details: previously on bup, no longer takes. Housing: house Do you feel safe in your relationship?: Yes Meds Allergies and Home Medications Allergies Allergy/AdvReac Type Severity Reaction Status Date / Time No Known Allergies Allergy Unverified 08/21/24 09:38 Home Medications ?Medication ?Instructions ?Recorded ?Confirmed ?Type ibuprofen 600 mg tablet 600 mg PO TID PRN PRN #30 tabs 08/07/15 12/18/24 Rx escitalopram oxalate 10 mg tablet 10 mg PO DAILY 06/14/23 12/18/24 History albuterol sulfate 90 mcg/actuation 2 puff inhalation Q6H PRN 06/23/24 12/18/24 Rx aerosol inhaler shortness of breath or wheezing #8.5 grams buprenorphine 8 mg-naloxone 2 mg 2 film buccal DAILY 06/23/24 12/18/24 History sublingual film buspirone 10 mg tablet 10 mg PO TID 06/23/24 12/18/24 History clonidine HCl 0.1 mg tablet 0.1 mg PO QHS 06/23/24 12/18/24 History escitalopram oxalate 20 mg tablet 20 mg PO DAILY 06/23/24 12/18/24 History bupropion HCl 150 mg 24 hr tablet, 150 mg PO 08/21/24 08/21/24 History extended release disulfiram 250 mg tablet 250 mg PO DAILY 08/21/24 12/18/24 History ondansetron HCl 4 mg tablet 4 mg PO Q8H PRN 08/21/24 12/18/24 History propranolol 10 mg tablet 10 mg PO BID PRN 08/21/24 12/18/24 History Exam Narrative Exam Narrative: General: Patient appears appropriate for age, moderately obese, alert and oriented x 3 and in no acute distress. HEENT: Normocephalic, eyes with pupils equal and reactive to light symmetrically, extraocular movement intact and sclera anicteric. Oropharynx with fair dentition and moist mucosa. Neck: Supple without JVD. Back: Stooped posture without CVA tenderness. Lungs: Clear to auscultation percussion with no focalized rales or rhonchi. Bronchovesicular breath sounds diffusely with fair aeration. No expiratory wheeze. Heart: Regular rate and rhythm with no murmurs or gallops appreciated. Abdomen: Obese contour, soft and nontender to palpation without palpable hepatosplenomegaly. Genitalia: Circumcised penis, large pendulous scrotum and normal testicles with 3 cm swelling in the left lower scrotum with induration and purulent point without active draining. No peritoneal lesions. Rectal: Exam deferred. Extremities: Without clubbing, cyanosis or pitting edema. Peripheral pulses intact. Skin: Normal color, warm and dry. Neuro: Cranial nerves II through XII is intact, no focalized motor deficits and no tremor. Psych: Flattened affect but normal mood on medical therapy. No abnormal thought processes. Remote and recent memory intact. Results Imaging Imaging Studies: Exam: CT Pelvis With Contrast Exam date and time: 12/18/2024 9:22 PM Age: 44 years old Clinical indication: Other: Scrotal abscess TECHNIQUE: Imaging protocol: Computed tomography of the pelvis with contrast. Contrast material: OMNIPAQUE 350; Contrast volume: 75 ml; Contrast route: INTRAVENOUS (IV); COMPARISON: No relevant prior studies available. FINDINGS: Intestine: No bowel dilatation. Colonic diverticula. Appendix: Normal in appearance. Intraperitoneal space: Unremarkable. No free air. No significant fluid collection. Lymph nodes: Unremarkable. No enlarged lymph nodes. Reproductive: Normal prostate. There maybe scrotal skin thickening. No discrete collection, air-fluid level or gas bubbles are demonstrated in the scrotum. Testicles appear normally descended and are normal in size. Urinary bladder: Normal. No mass. Bones/joints: Degenerative disc disease at L5-S1 level. There is asymmetric sclerosis inferolaterally in right sacral ala without expansile or destructive change. Minimal sclerosis is demonstrated bilaterally in each ilium at sacroiliac joints. No acute fracture. No dislocation. Soft tissues: Unremarkable. IMPRESSION: 1. No CT findings for scrotal abscess. There maybe scrotal skin thickening. Further evaluation with scrotal ultrasound suggested. 2. Asymmetric sclerosis in right sacrum and in both aly at sacroiliac joints could be due to early but asymmetric osteoarthritis or less likely gout, psoriatic arthritis or reactive arthritis. Follow-up recommended. 3. Colonic diverticula. Labs 12/18/24 20:56 12/18/24 20:56 Labs: Laboratory Results - last 24 hr 12/18/24 20:56 WBC 10.26 RBC 4.41 Hgb 12.5 L Hct 37.9 L MCV 86 MCH 28.3 MCHC 33.0 RDW 11.9 Plt Count 216 MPV 8.5 Immature Gran % 0.5 Neutrophils % 73.8 Lymphocytes % 15.5 Monocytes % 7.8 Eosinophils % 2.1 Basophils % 0.3 Nucleated RBC % 0.0 Absolute Neutrophils 7.57 H Absolute Lymphocytes 1.59 Absolute Monocytes 0.80 Absolute Eosinophils 0.22 Absolute Basophils 0.03 Sodium 137 Potassium 3.8 Chloride 102 Carbon Dioxide 30.2 Anion Gap 4.8 BUN 14 Creatinine 0.8 Est GFR (CKD-EPI 2020) 113.32 Glucose 115 H Calcium 8.8 Total Bilirubin 0.2 AST 18 ALT 36 Alkaline Phosphatase 97 Total Protein 6.9 Albumin 3.3 L Last Vital Signs Temp 36.8 C 12/18/24 20:18 Pulse 71 12/18/24 20:18 Resp 19 12/18/24 20:18 BP 169/92 H 12/18/24 20:18 Pulse Ox 99 12/18/24 20:18 Time Spent Time spent with Patient: 55-74 minutes Time was spent: preparing to see the patient(eg.review tests), obtaining and/or reviewing separately otained hiistory, ordering medications,tests, procedures, referring, communicating with other health adult day care worker, indepentently interpreting results and care coordination
--- NOTE | 2024-12-18 23:56 | W.PC.ACHO ---
Registration Status: REG ER Primary Language: Preferred Language: Irish ED Information & Data Chief Complaint RashLesion 12/18/24 20:41 Triage Note Pt reports abscess behind 12/18/24 20:18 testicles that developed 4 days ago. pt has hx of multiple abscess. Pt also endorses body aches today with nausea. Medical / Surgical History (Last Reviewed 12/18/24 @ 23:23 by Bryant Noguera) Diverticulitis large intestine GERD (gastroesophageal reflux disease) Diverticulosis of colon Opiate dependence (Last Reviewed 12/18/24 @ 23:23 by Bryant Noguera) Colonoscopy - IV Sedation Most Recent Vital Signs Temperature 36.8 C 12/18/24 20:18 Temperature Source Oral 12/18/24 20:18 Pulse 71 12/18/24 20:18 Respiratory Rate 19 12/18/24 20:18 Blood Pressure 169/92 H 12/18/24 20:18 Pulse Oximetry 99 12/18/24 20:18 Oxygen Delivery Method Room Air 12/18/24 20:18 Oxygen Flow Rate 0 12/18/24 20:18 Pain Level 8 12/18/24 20:18 Allergies No Known Allergies Allergy (Unverified 08/21/24 09:38) Active Medications Generic Name Dose Route Start Last Admin Trade Name Freq PRN Reason Stop Dose Admin Iohexol 100 ml 12/18/24 21:15 12/18/24 21:14 Omnipaque 350 Mg/Ml 100 Ml Btl IJ 01/17/25 23:59 100 ml DIRECTED AIDA Administration Sodium Chloride 50 ml 12/18/24 21:15 12/18/24 21:14 Normal Saline - Diluent 50 Ml Vial IJ 50 ml .FOR DI USE AIDA Administration IV IV Catheter Type [Left Saline Lock Antecubital] IV Catheter Gauge [Left 20 Antecubital] Diagnostics 12/18/24 12/18/24 Range/Units 23:39 20:56 WBC 10.26 (4.4-10.8) 10^3/uL RBC 4.41 (4.36-5.78) 10^6/uL Hgb 12.5 L (13.5-17.5) g/dL Hct 37.9 L (40.0-50.0) % MCV 86 (80-95) fL MCH 28.3 (27.0-33.0) pg MCHC 33.0 (32.0-36.0) % RDW 11.9 (11.8-14.1) % Plt Count 216 (130-400) 10^3/uL MPV 8.5 (8.0-11.0) fL Immature Gran % 0.5 % Neutrophils % 73.8 % Lymphocytes % 15.5 % Monocytes % 7.8 % Eosinophils % 2.1 % Basophils % 0.3 % Nucleated RBC % 0.0 (0.0-0.3) % Absolute Neutrophils 7.57 H (1.2-6.7) 10^3/uL Absolute Lymphocytes 1.59 (1.2-3.4) 10^3/uL Absolute Monocytes 0.80 (0.1-0.8) 10^3/uL Absolute Eosinophils 0.22 (0.0-0.7) 10^3/uL Absolute Basophils 0.03 (0.0-0.2) 10^3/uL Sodium 137 (136-145) mmol/L Potassium 3.8 (3.5-5.1) mmol/L Chloride 102 (98-107) mmol/L Carbon Dioxide 30.2 (21.0-32.0) mmol/L Anion Gap 4.8 (3-11) mmol/L BUN 14 (7-18) mg/dL Creatinine 0.8 (0.70-1.30) mg/dL Est GFR (CKD-EPI 2020) 113.32 (mL/min/1.73m2) Glucose 115 H (74-106) mg/dL Calcium 8.8 (8.5-10.1) mg/dL Total Bilirubin 0.2 (0.2-1.0) mg/dL AST 18 (15-37) U/L ALT 36 (16-63) U/L Alkaline Phosphatase 97 (46-116) U/L Total Protein 6.9 (6.4-8.2) g/dL Albumin 3.3 L (3.4-5.0) g/dL COVID-19 Source Pending SARS-CoV-2 (PCR) Pending Influenza Type A (PCR) Pending Influenza Type B (PCR) Pending RSV (PCR) Pending Intake and Output - 24 Hour Total 12/18/24 20:15 thru 12/18/24 20:18 Weight 136.078 kg Falls Risk Assessment History of Falls No History 12/18/24 20:23 Contributing Factors No Factors 12/18/24 20:23 Ambulatory Aids Independent 12/18/24 20:23 Tubes/Lines None 12/18/24 20:23 Gait Evaluation No gait disturbance 12/18/24 20:23 Cognition No cognitive impairment 12/18/24 20:23 Fall Total Score 0 12/18/24 20:23 Level of Risk Standard/Low Risk 12/18/24 20:23 Problems (Last Reviewed 12/18/24 @ 23:23 by Bryant Noguera) Sclerosis of sacroiliac joint (Acute) Cellulitis, scrotum (Acute) Depression (Chronic) Scrotal wall abscess (Acute) v v v v v v v v v Sending and/or Receiving Nurses: Please use comment section below to note any information pertinent to the patient hand-off not included above. Information / Comments: Report received from ED. A+Ox4. Scrotal abscess, open to air. Pt is on RA. Ind for mobility. Report received from: Nishant
[2024-12-19 00:08] VITALS: BP 138/78; PULSE 66; RESP 18; TEMP 36.6; O2SAT 99
[2024-12-19 01:22] LABS: COVID-19 PCR Negative (Negative); RSV PCR Negative (Negative)
[2024-12-19 03:26] VITALS: BP 92/81; PULSE 70; RESP 18; TEMP 36.5; O2SAT 94
[2024-12-19] MEDS: PIPERACILLIN/TAZO 3.375 GM in Normal Saline 50 ML IVPB ×2 (03:47→10:23)
[2024-12-19] MEDS: Ketorolac 30 MG/ML VIAL IVP (03:47)
[2024-12-19 03:54] VITALS: BP 125/64
[2024-12-19 06:58] LABS: HCT 37.0 % (40.0-50.0); HGB 12.4 g/dL (13.5-17.5); MCH 28.5 pg (27.0-33.0); MCHC 33.5 % (32.0-36.0); MCV 85 fL (80-95); MPV 8.5 fL (8.0-11.0); Platelet Count 194 10^3/uL (130-400); RBC 4.35 10^6/uL (4.36-5.78); RDW 11.7 % (11.8-14.1); RDW-SD 36.3 fL; WBC 9.32 10^3/uL (4.4-10.8)
[2024-12-19 07:09] LABS: INR 1.0 (0.9-1.1); Prothrombin Time 10.0 sec (9.1-11.1)
[2024-12-19 07:18] VITALS: BP 116/66; PULSE 54; RESP 16; TEMP 36.6; O2SAT 96
[2024-12-19 07:22] LABS: ALT 39 U/L (16-63); AST 19 U/L (15-37); Albumin 2.9 g/dL (3.4-5.0); Alkaline Phosphatase 91 U/L (46-116); Anion Gap 4.4 mmol/L (3-11); BUN 11 mg/dL (7-18); Bilirubin, Total 0.7 mg/dL (0.2-1.0); CO2 30.6 mmol/L (21.0-32.0); Calcium 8.8 mg/dL (8.5-10.1); Chloride 104 mmol/L (98-107); Estimated GFR 113.32 (mL/min/1.73m2); Glucose 106 mg/dL (74-106); Magnesium 2.0 mg/dL (1.8-2.4); Potassium 3.9 mmol/L (3.5-5.1); Sodium 139 mmol/L (136-145); Total Protein 6.3 g/dL (6.4-8.2)
[2024-12-19] MEDS: Normal Saline Flush 10 ML SYR IVP (07:56)
[2024-12-19] MEDS: Buprenorphine/Naloxone 8 mg/2 mg FILM 2 EACH SL (07:56)
[2024-12-19 08:29] LABS: Glucose Negative (Negative)
--- NOTE | 2024-12-19 08:38 | PDOC.CMIN ---
Date of service: 12/19/24 Time of Service: 08:38 Care Management Initial Assmt Initial Assessment Reason for Hospitalization: scrotal abscess Functional Status/Living Situation Town of Residence: [place], [place] Resides with: Alone Significant Other/Family: [facility] Employment Status: Employed ([employer]) Instrumental Activities of Daily Living (ADLs): Independent Medications Medication Management: No Issues/Barriers identified Physical Functioning/Mobility Assistive Device: none Advance Directives Advance Directives: Do you have an Advance Directive: N 03/22/13, 10:22 AD On File at [facility]: N 03/22/13, 10:22 Date Asked 05/25/24 05/25/24, 13:14 AD Date Reviewed COLST On File at [facility] COLST Date Scanned Code Status Resuscitation Status Full Code Portal Pt does not currently have a portal and education provided: Yes Insurance Coverage/Financial Issues Insurance: BC/BS of In [employer] Care Team Visit Care Team Role Provider Type MERLE EDDY NP Primary Care Provider [employer] STAFF PHYSICIAN Katie Lopez MD Other Providers [facility] STAFF PHYSICIAN Marianela Salas Emergency Provider NURSE PRACTITIONER Bryant Noguera Admit Provider [employer] STAFF PHYSICIAN Attending Provider Discharge Potential Discharge Needs: PCP F/U Appt Anticipated Barriers to Discharge: None Identified Patient/Family Education Needs: Review discharge instructions, discuss Ask Me Three Transportation: Private vehicle Plan: Anticipate Rick will be discharged home with no new services when medically cleared. He will follow up with his PCP and plan of care and transport with family. CM will follow and continue to assess for discharge needs. Social Determinants of Health Screening Social Determinants of health last assessed in clinic: 12/19/24 Will the Patient Participate in the Screening?: Yes Do you worry about having a steady place to live?: no Problems where you live: no known problems In the past 12 months, have you had to go without electric, gas, oil or water in your home?: no Has lack of transportation kept you from medical appointments or from doing things needed for daily living?: no Has anyone in your life made you feel unsafe or unsupported?: no How hard is it for you to pay for the very basics like food, housing, medical care, and heating? Would you say it is:: Not hard at all Do you want help finding or keeping work or a job?: I do not need or want help If for any reason you need help with day-to-day activities such as bathing, preparing meals, shopping, managing finances, etc., do you get the help you need?: I don?t need any help How often do you feel lonely or isolated from those around you?: Never Do you speak a language other than Welsh at home?: No Does the patient want assistance with any of the above?: No PFSH All Active Problems (Updated 12/19/24 @ 06:37 by Bryant Noguera) Tobacco user (Chronic) Sclerosis of sacroiliac joint (Acute) Cellulitis, scrotum (Acute) Depression (Chronic) Scrotal wall abscess (Acute) Cellulitis of left foot (Acute) Foreign body in left foot (Acute) Cholecystitis with cholelithiasis (Acute) Diverticulitis of colon (Acute 04/03/14) LLQ abdominal pain (Acute 04/03/14) Medical History (Updated 12/19/24 @ 06:37 by Bryant Noguera) Diverticulitis large intestine w/ microperforation 2013 GERD (gastroesophageal reflux disease) Diverticulosis of colon 2014 Opiate dependence on suboxone Surgical History Colonoscopy - IV Sedation 2014-Sue Garcia Social History Smoking/Tobacco Use Status: Current every day Tobacco Type: cigarettes Years smoked: 25 Smoking risk assessment performed?: Yes Alcohol Intake: former Drug use: Current Sobriety Substance use type: former substance user Details: previously on bup, no longer takes. Housing: house Do you feel safe in your relationship?: Yes
[2024-12-19 08:40] LABS: Cannabinoids THC Negative (Negative); METHADONE URINE SCREEN Negative (Negative)
--- NOTE | 2024-12-19 09:46 | W.SURGCON ---
Date of service: 12/19/24 Time of Service: 09:46 History of Present Illness History of Present Illness Chief Complaint: scrotal abscess Narrative: 44yo M with scrotal infection. He has had hardening of the scrotum on the posterior side near the perineum for 3-4 days. It has swelled up and became very painful. He and his girlfriend were able through different techniques to drain a small amount of white purulent fluid out of it. He says that it mostly is just hard and has not had a lot of fluid. Leakage of purulent fluid was noted in the er and exam showed a 7cm area of infection. CT was done and did not show abscess but US is the ideal test to check for abscess and was not available. He was brought in to hospital to initiate IV abx due to size and severity of the infection, and for surgical evaluation for I&D. Pt says that since abx were started last night the pain and swelling have decreased. It feels less hard/firm. He says he has not had any more drainage from the site. Says he has been identified as a prediabetic in the past but no formal diabetes diagnosis. He has had multiple prior skin infections and abscesses requiring I&D though this is the first one in the scrotum. no testicular pain. no urethral drainage. At home he felt systemic symptoms of fever, chills and malaise. He says these have also resolved. Review of Systems All systems reviewed & are unremarkable except as noted in HPI and below PFSH All Active Problems Tobacco user (Chronic) Sclerosis of sacroiliac joint (Acute) Cellulitis, scrotum (Acute) Depression (Chronic) Scrotal wall abscess (Acute) Cellulitis of left foot (Acute) Foreign body in left foot (Acute) Cholecystitis with cholelithiasis (Acute) Diverticulitis of colon (Acute 04/03/14) LLQ abdominal pain (Acute 04/03/14) Medical History Diverticulitis large intestine w/ microperforation 2013 GERD (gastroesophageal reflux disease) Diverticulosis of colon 2013 Opiate dependence on suboxone Surgical History Colonoscopy - IV Sedation Tiara Garcia Social History Smoking/Tobacco Use Status: Current every day Tobacco Type: cigarettes Years smoked: 25 Smoking risk assessment performed?: Yes Alcohol Intake: former Drug use: Current Sobriety Substance use type: former substance user Details: previously on bup, no longer takes. Housing: house Do you feel safe in your relationship?: Yes Exam Narrative Exam Narrative: awake, NAD eomi, MMM midline trachea, neck is symmetric PULM: normal resp effort, equal chest rise with respiration, no wheezing audible CARDIAC: normal PMI, no jvd, regular rate, normal perfusion abdomen is nondistended. extremities are without deformity, normal movement of all four extremities speech is clear and coherent mood and affect are congruent, no focal neurological deficits skin without rash scrotum - normal scrotum anteriorly. normal testicles. Posterior midline raphe and anterior perineum with induration of skin and soft tissues resulting in a 7cm by 4cm lump. Surface erosion has occurred but there is no open wound or drainage of purulent fluid. No fluctuance. Skin is warm with moderate pink color of the infected site, no crepitance. no sign of fourniers. Results Last Vital Signs Temp 97.9 F 12/19/24 07:18 Pulse 54 L 12/19/24 07:18 Resp 16 12/19/24 07:18 BP 116/66 12/19/24 07:18 Pulse Ox 96 12/19/24 07:18 Labs 12/19/24 06:39 12/19/24 06:39 Labs: Laboratory Results - last 24 hr 12/18/24 12/19/24 12/19/24 20:56 00:30 06:39 WBC 10.26 9.32 RBC 4.41 4.35 L Hgb 12.5 L 12.4 L Hct 37.9 L 37.0 L MCV 86 85 MCH 28.3 28.5 MCHC 33.0 33.5 RDW 11.9 11.7 L Plt Count 216 194 MPV 8.5 8.5 Immature Gran % 0.5 Neutrophils % 73.8 Lymphocytes % 15.5 Monocytes % 7.8 Eosinophils % 2.1 Basophils % 0.3 Nucleated RBC % 0.0 Absolute Neutrophils 7.57 H Absolute Lymphocytes 1.59 Absolute Monocytes 0.80 Absolute Eosinophils 0.22 Absolute Basophils 0.03 PT 10.0 INR 1.0 Sodium 137 139 Potassium 3.8 3.9 Chloride 102 104 Carbon Dioxide 30.2 30.6 Anion Gap 4.8 4.4 BUN 14 11 Creatinine 0.8 0.8 Est GFR (CKD-EPI 2020) 113.32 113.32 Glucose 115 H 106 Calcium 8.8 8.8 Magnesium 2.0 Total Bilirubin 0.2 0.7 AST 18 19 ALT 36 39 Alkaline Phosphatase 97 91 Total Protein 6.9 6.3 L Albumin 3.3 L 2.9 L Urine Color Urine Clarity Urine pH Ur Specific [place] Urine Protein Urine Ketones Urine Blood Urine Nitrite Urine Bilirubin Urine Urobilinogen Ur Leukocyte Esterase Urine Glucose Urine Opiates Screen Urine Methadone Screen Ur Barbiturates Screen Ur Tricyclics Screen Ur Amphetamines Screen U Benzodiazepines Scrn Urine Cocaine Screen Ur THC Screen COVID-19 Source Nasopharynx SARS-CoV-2 (PCR) Negative Influenza Type A (PCR) Negative Influenza Type B (PCR) Negative RSV (PCR) Negative 12/19/24 08:15 WBC RBC Hgb Hct MCV MCH MCHC RDW Plt Count MPV Immature Gran % Neutrophils % Lymphocytes % Monocytes % Eosinophils % Basophils % Nucleated RBC % Absolute Neutrophils Absolute Lymphocytes Absolute Monocytes Absolute Eosinophils Absolute Basophils PT INR Sodium Potassium Chloride Carbon Dioxide Anion Gap BUN Creatinine Est GFR (CKD-EPI 2020) Glucose Calcium Magnesium Total Bilirubin AST ALT Alkaline Phosphatase Total Protein Albumin Urine Color Yellow Urine Clarity Clear Urine pH 5.5 Ur Specific [place] 1.015 Urine Protein Negative Urine Ketones Negative Urine Blood Negative Urine Nitrite Negative Urine Bilirubin Negative Urine Urobilinogen 0.2 Ur Leukocyte Esterase Negative Urine Glucose Negative Urine Opiates Screen Negative Urine Methadone Screen Negative Ur Barbiturates Screen Negative Ur Tricyclics Screen Negative Ur Amphetamines Screen Negative U Benzodiazepines Scrn Negative Urine Cocaine Screen Negative Ur THC Screen Negative COVID-19 Source SARS-CoV-2 (PCR) Influenza Type A (PCR) Influenza Type B (PCR) RSV (PCR) Imaging Abdomen CT scan report/results: report reviewed and image reviewed
[2024-12-19] MEDS: Escitalopram 20 MG TAB PO (10:23)
--- NOTE | 2024-12-19 10:35 | W.PM.DS.N ---
Date of service: 12/19/24 Time of Service: 10:35 DS: Diagnosis Discharge Diagnosis (1) Scrotal wall abscess: Status: Acute (2) Opiate dependence: (3) Depression: Status: Chronic (4) Tobacco user: Status: Chronic Discharge Plan Disposition Patient Disposition: Home Condition: Stable Discharge Details Reason For Visit: Scrotal wall abscess Admit Date/Time: 12/18/24 23:39 Admit Provider: Bryant Noguera Attending Provider: Bryant Noguera Primary Care Provider: MERLE EDDY Hospital Course Hospital Course: This is a 44-year-old male patient history of tobacco use diverticulitis, cholecystitis on Suboxone presents here to the emergency department with complaints of scrotal abscess that he drained at home. He was started on IV antibiotics and admitted to the hospitalist services with surgical consultation. Overnight he is remained afebrile and hemodynamically stable. He was seen by general surgery with no evidence of untreated or ongoing abscess with recommendations to continue a 7-day antibiotic course to treat cellulitis. Originally recommended that he remain here overnight to ensure that he continues to improve but patient would like to trial outpatient treatment. Recommendations will be for 7 days of Bactrim with outpatient general surgery consultation. He was advised to return to the hospital sooner for new or worsening symptoms. He did get pain relief on the Toradol and will continue pain relief outpatient with NSAIDs prescription will be provided for Celebrex. He should resume the rest of his medications as previously directed Discussed with Dr. Segura Nunda Meds and New Rx's Prescriptions: New sulfamethoxazole-trimethoprim [Bactrim DS] 800-160 mg tablet 1 tab PO BID Qty: 14 0RF celecoxib [Celebrex] 200 mg capsule 200 mg PO BID PRNQty: 60 0RF Continued escitalopram oxalate 20 mg tablet 20 mg PO DAILY buprenorphine-naloxone 8-2 mg film 2 film buccal DAILY Rx Instructions: place 1 film on inside of (each) cheek albuterol sulfate 90 mcg/actuation HFA aerosol inhaler 2 puff inhalation Q6H PRN (Reason: shortness of breath or wheezing) Qty: 8.5 0RF disulfiram 250 mg tablet 250 mg PO DAILY Patient Comments: TAKE ONE TABLET BY MOUTH EVERY DAY ibuprofen 600 MG tablet 600 mg PO TID PRN PRNQty: 30 0RF Rx Instructions: take with food Discharge Instructions Instructions: Cellulitis (Skin Infection), Adult ED Additional Instructions: take antibiotics as directed even if you feel better drink 6-8 glasses or more of water daily to stay well hydrated take celebrex as needed for pain, take with food, do not take other NSAIDs while taking it. (ie: ibuprofen, naproxen, etc), Ok to add acetaminophen 650 mg four times daily for breakthrough pain, Stand Alone Forms: Nursing Discharge Form Referrals: MERLE EDDY AUGER SUPERVISOR [Primary Care Provider, Medicine] Referral Note: I called PCP office and left a voicemail to have them call you to set up a follow up appointment for within 1 to 2 weeks. Katie Lopez MD [ [facility] STAFF PHYSICIAN, Surgery] Referral Note: Office will give a call to set up a follow up appointment. Activity:: Activity as Tolerated Equipment/Supplies:: No Equipment Needed Diet:: As Tolerated Discharge Orders Discharge Orders: Discharge Order (Routine); Ordered 12/19/24 Ordered By: Agnieszka Cardoza Discharge Data Discharge Date/Time-TO BE ENTERED AT DEPARTURE: 12/19/24 11:13 DS: Summary Time Spent with Patient providing and/or coordinating discharge services: Less than 30 minutes Status at Discharge Functional status at discharge: independent ambulation Overall status at discharge: patient is progressing back to baseline Mental Status: mental status grossly normal Speech and Movement: speech and movement normal Mood: congruent mood Affect: normal affect Exam Narrative Exam Narrative: Well-appearing male of stated age no acute distress head is atraumatic eyes nonicteric noninjected oral mucosas moist neck is supple full range of motion neurologic he is awake alert oriented no focal deficits psychiatric appropriate mood and affect cardiovascular regular rate and rhythm respirations even and unlabored abdomen benign moves all extremities equally Psych Mental Status: mental status grossly normal Speech and Movement: speech and movement normal Mood: congruent mood Affect: normal affect DS: Data Vitals/I&O Vitals and I&O: Vital Signs Temperature 36.6 C 12/19/24 07:18 Temperature Source Temporal Artery Scan 12/19/24 07:18 Pulse 54 L 12/19/24 07:18 Pulse Rhythm Regular 12/19/24 00:08 Respiratory Rate 16 12/19/24 07:18 Respiratory Effort Normal 12/19/24 00:08 Respiratory Depth Normal 12/19/24 00:08 Respiratory Pattern Normal 12/19/24 00:08 Blood Pressure 116/66 08/03/25 07:18 Blood Pressure Mean 82 12/19/24 07:18 Pulse Oximetry 96 12/19/24 07:18 Oxygen Delivery Method Room Air 12/19/24 03:26 Oxygen Flow Rate 0 12/19/24 03:26 Pain Level 7 12/19/24 03:47 Comment rn notified 12/19/24 07:18 Intake & Output 12/18/24 12/18/24 12/19/24 11:59 23:59 11:59 Intake Total 150 / 150 Balance 150 / 150 Weight 136.078 kg 131.5 kg Intake: IV 150 / 150 Other: Urine Appearance Clear Data Completed and Pending Labs on day of discharge: Labs from last 24 hours 12/19/24 12/19/24 12/19/24 08:15 06:39 00:30 WBC 9.32 RBC 4.35 L Hgb 12.4 L Hct 37.0 L MCV 85 MCH 28.5 MCHC 33.5 RDW 11.7 L Plt Count 194 MPV 8.5 Immature Gran % Neutrophils % Lymphocytes % Monocytes % Eosinophils % Basophils % Nucleated RBC % Absolute Neutrophils Absolute Lymphocytes Absolute Monocytes Absolute Eosinophils Absolute Basophils PT 10.0 INR 1.0 Sodium 139 Potassium 3.9 Chloride 104 Carbon Dioxide 30.6 Anion Gap 4.4 BUN 11 Creatinine 0.8 Est GFR (CKD-EPI 2020) 113.32 Glucose 106 Calcium 8.8 Magnesium 2.0 Total Bilirubin 0.7 AST 19 ALT 39 Alkaline Phosphatase 91 Total Protein 6.3 L Albumin 2.9 L Urine Color Yellow Urine Clarity Clear Urine pH 5.5 Ur Specific [place] 1.015 Urine Protein Negative Urine Ketones Negative Urine Blood Negative Urine Nitrite Negative Urine Bilirubin Negative Urine Urobilinogen 0.2 Ur Leukocyte Esterase Negative Urine Glucose Negative Urine Opiates Screen Negative Urine Methadone Screen Negative Ur Barbiturates Screen Negative Ur Tricyclics Screen Negative Ur Amphetamines Screen Negative U Benzodiazepines Scrn Negative Urine Cocaine Screen Negative Ur THC Screen Negative COVID-19 Source Nasopharynx SARS-CoV-2 (PCR) Negative Influenza Type A (PCR) Negative Influenza Type B (PCR) Negative RSV (PCR) Negative 12/18/24 20:56 WBC 10.26 RBC 4.41 Hgb 12.5 L Hct 37.9 L MCV 86 MCH 28.3 MCHC 33.0 RDW 11.9 Plt Count 216 MPV 8.5 Immature Gran % 0.5 Neutrophils % 73.8 Lymphocytes % 15.5 Monocytes % 7.8 Eosinophils % 2.1 Basophils % 0.3 Nucleated RBC % 0.0 Absolute Neutrophils 7.57 H Absolute Lymphocytes 1.59 Absolute Monocytes 0.80 Absolute Eosinophils 0.22 Absolute Basophils 0.03 PT INR Sodium 137 Potassium 3.8 Chloride 102 Carbon Dioxide 30.2 Anion Gap 4.8 BUN 14 Creatinine 0.8 Est GFR (CKD-EPI 2020) 113.32 Glucose 115 H Calcium 8.8 Magnesium Total Bilirubin 0.2 AST 18 ALT 36 Alkaline Phosphatase 97 Total Protein 6.9 Albumin 3.3 L Urine Color Urine Clarity Urine pH Ur Specific [place] Urine Protein Urine Ketones Urine Blood Urine Nitrite Urine Bilirubin Urine Urobilinogen Ur Leukocyte Esterase Urine Glucose Urine Opiates Screen Urine Methadone Screen Ur Barbiturates Screen Ur Tricyclics Screen Ur Amphetamines Screen U Benzodiazepines Scrn Urine Cocaine Screen Ur THC Screen COVID-19 Source SARS-CoV-2 (PCR) Influenza Type A (PCR) Influenza Type B (PCR) RSV (PCR) PFSH All Active Problems Tobacco user (Chronic) Sclerosis of sacroiliac joint (Acute) Cellulitis, scrotum (Acute) Depression (Chronic) Scrotal wall abscess (Acute) Cellulitis of left foot (Acute) Foreign body in left foot (Acute) Cholecystitis with cholelithiasis (Acute) Diverticulitis of colon (Acute 04/03/14) LLQ abdominal pain (Acute 04/03/14) Medical History Diverticulitis large intestine w/ microperforation 2013 GERD (gastroesophageal reflux disease) Diverticulosis of colon 2014 Opiate dependence on suboxone Surgical History Colonoscopy - IV Sedation Steven-Sue Garcia Social History Smoking/Tobacco Use Status: Current every day Tobacco Type: cigarettes Years smoked: 25 Smoking risk assessment performed?: Yes Alcohol Intake: former Drug use: Current Sobriety Substance use type: former substance user Details: previously on bup, no longer takes. Housing: house Do you feel safe in your relationship?: Yes Time Spent with Patient Time Spent with Patient: <45 minutes Time was spent: preparing to see the patient(eg.review tests), obtaining and/or reviewing separately otained hiistory, ordering medications,tests, procedures, referring, communicating with other health sub acute care nurse, indepentently interpreting results and counseling the patient
--- NOTE | 2024-12-19 13:35 | CMPROGNOTE_ITS ---
Date of service: 12/19/24 Time of Service: 13:35 Care Management Progress Note Progress Note Text Progress Note Text: Rick was admitted last evening with a scrotal abscess. He was seen by the surgeon this morning and it was determined that no surgical intervention is required at this time. There was no evidence of an abscess on exam, only cellulitis. Rick will be discharged home on oral antibiotics and will follow up with surgical services later this week. Rick left before was able to meet with [facility]. Social Determinants of Health Screening Social Determinants of health last assessed in clinic: 12/19/24 Will the Patient Participate in the Screening?: Yes Do you worry about having a steady place to live?: no Problems where you live: no known problems In the past 12 months, have you had to go without electric, gas, oil or water in your home?: no 1. Within the past 12 months, we worried whether our food would run out before we got money to buy more.: Don't know/refused 2. Within the past 12 months, the food we bought just didn't last and we didn't have money to get more.: Don't know/refused Has lack of transportation kept you from medical appointments or from doing things needed for daily living?: no Has anyone in your life made you feel unsafe or unsupported?: no How hard is it for you to pay for the very basics like food, housing, medical care, and heating? Would you say it is:: Not hard at all Do you want help finding or keeping work or a job?: I do not need or want help If for any reason you need help with day-to-day activities such as bathing, preparing meals, shopping, managing finances, etc., do you get the help you need?: I don?t need any help How often do you feel lonely or isolated from those around you?: Never Do you speak a language other than [place] at home?: No Does the patient want assistance with any of the above?: No
== END 2024-12-19 11:13 | disposition home or self-care (01) ==
LOC: ER 23:47 → MS 12-19 00:06
PROVIDERS: Admitting Provider Family Medicine; Emergency Provider Nurse Practitioner Family; PCP Nurse Practitioner Family; Responsible Provider Nurse Practitioner Acute Care; Visit Provider Family Medicine
DX: N49.2 Inflammatory disorders of scrotum (principal); F17.210 Nicotine dependence, cigarettes, uncomplicated; K21.9 Gastro-esophageal reflux disease without esophagitis; F11.21 Opioid dependence, in remission; K57.30 Diverticulosis of large intestine without perforation or abscess without bleeding; F32.A Depression, unspecified; E66.9 Obesity, unspecified; M25.80 Other specified joint disorders, unspecified joint; Z68.36 Body mass index [BMI] 36.0-36.9, adult
CPT/HCPCS: 00123; 36415; 80053; 80307; 85027; 87637; 96365; 96366; 96375; 96376; 99285; 72193; 81003; 83735; 85025; 85610; 99222; 99238; G0378; J1885; J2543; J3490

== ENCOUNTER 2025-05-17 16:27 | Outpatient (REF) | payer BC, SELFPAY ==
[2025-05-17 19:24] LABS: Hemoglobin A1C 5.4 % (<5.7)
[2025-05-17 19:26] LABS: ALT 42 U/L (10-49); AST 25 U/L (<34); Albumin 4.4 g/dL (3.2-5.0); Alkaline Phosphatase 90 U/L (46-116); Anion Gap 6.6 mmol/L (3-11); BUN 18 mg/dL (9-23); Bilirubin, Total 0.4 mg/dL (0.2-1.2); CO2 28.4 mmol/L (20.0-31.0); Calcium 9.3 mg/dL (8.3-10.6); Chloride 106 mmol/L (98-107); Cholesterol 177 mg/dL (<200); Glucose 85 mg/dL (74-106); HDL Cholesterol 51 mg/dL (>or=40); Potassium 4.3 mmol/L (3.5-5.1); Sodium 141 mmol/L (136-145); Total Protein 6.9 g/dL (5.7-8.2)
[2025-05-17 19:28] LABS: TSH 1.89 uIU/mL (0.55-4.78)
== END 2025-05-17 16:28 | disposition home or self-care (01) ==
LOC: NCHCN 16:27
PROVIDERS: PCP Nurse Practitioner Family; Visit Provider Nurse Practitioner Family
DX: Z00.00 Encounter for general adult medical examination without abnormal findings (principal); Z13.220 Encounter for screening for lipoid disorders; Z13.1 Encounter for screening for diabetes mellitus; F11.20 Opioid dependence, uncomplicated; F41.8 Other specified anxiety disorders; E66.9 Obesity, unspecified
CPT/HCPCS: 80053; 80061; 83036; 84443